=== PATIENT | male | born 1960 | race Caucasian/White ===

== ENCOUNTER 2020-11-07 15:02 | Outpatient (REF) | payer MEDICAID, SELFPAY ==
--- NOTE | ~2020-11-07 | MR_ITS ---
EXAMINATION: MR BRAIN WITHOUT CONTRAST CLINICAL INFORMATION: Ataxia. COMPARISON: None available. TECHNIQUE: Multiplanar, multisequence imaging of the brain was performed without intravenous contrast. FINDINGS: There is no acute infarction, mass, hemorrhage, or extra-axial collection. Moderate burden of demyelinating plaques are seen involving the periventricular, deep, and to lesser extent juxtacortical white matter. Multiple plaques are seen within the posterior fossa including within the nora, middle cerebellar peduncles, and deep cerebellar white matter. Many of the plaques demonstrate T1 hypointensity compatible with foci of chronic demyelination. A mild degree of brain parenchymal volume loss is seen. The flow voids of the major intracranial arteries appear intact. The bones and extracranial soft tissues are unremarkable. MR/MR head/brain wo con IMPRESSION: Moderate burden of demyelinating plaques seen throughout the supratentorial and infratentorial structures. No acute infarct, hemorrhage, or mass.
== END 2020-11-07 15:03 | disposition home or self-care (01) ==
LOC: HO.MRI 15:02
PROVIDERS: PCP Internal Medicine; Visit Provider Psychiatry & Neurology Neurology
DX: R27.0 Ataxia, unspecified (principal)
CPT/HCPCS: 70551

== ENCOUNTER 2021-04-02 10:26 | Outpatient (REF) | payer MEDICAID, SELFPAY | END 2021-04-02 10:27 | disposition home or self-care (01) | LOC: HO.MDS 10:26 | PROVIDERS: PCP Internal Medicine; Visit Provider Psychiatry & Neurology Neurology | DX: G35 Multiple sclerosis (principal) | CPT/HCPCS: 96365; J2930 ==

== ENCOUNTER 2021-04-03 10:35 | Outpatient (REF) | payer MEDICAID, SELFPAY | END 2021-04-03 10:36 | disposition home or self-care (01) | LOC: HO.MDS 10:35 | PROVIDERS: PCP Internal Medicine; Visit Provider Psychiatry & Neurology Neurology | DX: G35 Multiple sclerosis (principal) | CPT/HCPCS: 96365; J2930 ==

== ENCOUNTER 2021-04-04 10:23 | Outpatient (REF) | payer MEDICAID, SELFPAY | END 2021-04-04 10:24 | disposition home or self-care (01) | LOC: HO.MDS 10:23 | PROVIDERS: PCP Internal Medicine; Visit Provider Psychiatry & Neurology Neurology | DX: G35 Multiple sclerosis (principal) | CPT/HCPCS: 96365; J2930 ==

== ENCOUNTER 2021-11-15 11:43 | Outpatient (REF) | payer MEDICAID, SELFPAY ==
--- NOTE | ~2021-11-15 | MR_ITS ---
EXAMINATION: MRI OF THE BRAIN WITHOUT CONTRAST CLINICAL INFORMATION: 60-year-old undergoing evaluation for exacerbation of MS. COMPARISON: 11/07/2020 MRI. TECHNIQUE: Multiplanar multisequence MR imaging of the brain was done without IV contrast. FINDINGS: BRAIN VOLUME: Moderate focal volume loss involving the posterior body of the corpus callosum is similar to previous study. [id number] diffuse brain parenchymal volume loss throughout the supratentorial compartment is similar to previous exam. STRUCTURAL: No malformations. BRAIN AND MENINGES: DWI sequence demonstrates no restricted diffusion to suggest acute or subacute cerebral ischemia or active demyelination. Gradient refocused imaging demonstrates no evidence for hemorrhage, hemosiderin staining or abnormal mineral deposition. Redemonstrated are numerous white matter plaques throughout the subcortical and deeper periventricular white matter of both cerebral hemispheres with a similar overall distribution and appearance on T2 and FLAIR imaging. On T1-weighted imaging there are multiple T1 dark lesions with no significant change in overall lesion burden. No definite new lesions are seen since the previous exam. No extra-axial fluid collections, significant space-occupying process or mass effect. VENTRICLES AND SUBARACHNOID SPACES: The ventricular system and subarachnoid spaces are consistent with [id number] generalized supratentorial volume loss without hydrocephalus stable in appearance. ORBITAL STRUCTURES: Bilateral lens extractions are noted since the previous exam. Otherwise, the visualized orbital structures are grossly unremarkable within the limitations of the study. VASCULAR: Signal voids are noted in the visualized major intracranial vessels. OSSEOUS STRUCTURES, SINUSES/MASTOIDS, EXTRACRANIAL SOFT TISSUES: Unremarkable. MR/MR head/brain wo con IMPRESSION: 1. Overall stable white matter lesions in both cerebral hemispheres and corpus callosum with stable multiple T1 dark lesions indicating chronic demyelination. No definite new lesions are identified. 2. No acute intracranial process. No evidence for infarction, hemorrhage, extra-axial fluid collection, space-occupying process, mass effect or hydrocephalus. 3. Stable diffuse supratentorial parenchymal volume loss.
== END 2021-11-15 11:44 | disposition home or self-care (01) ==
LOC: HO.MRI 11:43
PROVIDERS: Visit Provider Psychiatry & Neurology Neurology
DX: G35 Multiple sclerosis (principal)
CPT/HCPCS: 70551

== ENCOUNTER 2021-11-19 09:49 | Outpatient (REF) | payer MEDICAID, SELFPAY | END 2021-11-19 09:50 | disposition home or self-care (01) | LOC: HO.MDS 09:49 | PROVIDERS: Visit Provider Psychiatry & Neurology Neurology | DX: G35 Multiple sclerosis (principal) | CPT/HCPCS: 96365; J2930 ==

== ENCOUNTER 2021-11-20 09:44 | Outpatient (REF) | payer MEDICAID, SELFPAY | END 2021-11-20 09:45 | disposition home or self-care (01) | LOC: HO.MDS 09:44 | PROVIDERS: Visit Provider Psychiatry & Neurology Neurology | DX: G35 Multiple sclerosis (principal) | CPT/HCPCS: 96365; J2930 ==

== ENCOUNTER 2021-11-21 10:10 | Outpatient (REF) | payer MEDICAID, SELFPAY | END 2021-11-21 10:11 | disposition home or self-care (01) | LOC: HO.MDS 10:10 | PROVIDERS: Visit Provider Psychiatry & Neurology Neurology | DX: G35 Multiple sclerosis (principal) | CPT/HCPCS: 96365; J2930 ==

== ENCOUNTER 2022-02-06 09:46 | Outpatient (REF) | payer MEDICAID, SELFPAY ==
--- NOTE | ~2022-02-06 | XR_ITS ---
EXAMINATION: XR CHEST CLINICAL INFORMATION: Nonspecific reaction to skin test without active tuberculosis COMPARISON: 04/14/2013 TECHNIQUE: 2 views of the chest were obtained. FINDINGS: Lungs are clear. No focal consolidation or mass. Normal pulmonary vascularity. No pleural effusion or pneumothorax. Normal heart size. Degenerative changes of the thoracic spine and shoulders. XR/XR chest 2V IMPRESSION: Normal chest. No findings to suggest active intrathoracic tuberculosis.
== END 2022-02-06 09:47 | disposition home or self-care (01) ==
LOC: HO.XRAY 09:46
PROVIDERS: Absent Provider Internal Medicine; PCP Internal Medicine; Visit Provider Internal Medicine
DX: R76.11 Nonspecific reaction to tuberculin skin test without active tuberculosis (principal)
CPT/HCPCS: 71046

== ENCOUNTER 2023-03-26 08:02 | Outpatient (REF) | payer MEDICARE, MEDICAID, SELFPAY ==
[2023-03-26 11:55] LABS: Estimated Average Glucose 111 mg/dL; Hemoglobin A1c % 5.5 % (<6.0)
[2023-03-26 12:00] LABS: Basophils Absolute Auto 0.1 X10*3/uL (0.0-0.2); Basophils Percent Auto 1.1 % (0-2); Eosinophils Absolute Auto 0.1 X10*3/uL (0.0-0.4); Eosinophils Percent Auto 1.9 % (0-4); Hematocrit 38.4 % (42.0-52.0); Hemoglobin 12.7 g/dl (14.0-18.0); Imm Gran Abs Auto 0.03 X10*3/uL (0.00-0.03); Imm Gran Pct Auto 0.5 % (0.0-0.4); Lymphocytes Absolute Auto 1.3 X10*3/uL (1.2-4.9); Lymphocytes Percent Auto 22.2 % (20-40); MANUAL DIFF FLAG SCAN; Mean Corpuscular HGB Conc 33.1 g/dl (31.0-36.0); Mean Corpuscular Hemoglobin 30.4 pg (27.0-33.0); Mean Corpuscular Volume 91.9 fL (80.0-98.0); Mean Platelet Volume 12.2 fL (9.4-12.4); Monocytes Absolute Auto 0.7 X10*3/uL (0.1-1.2); Neutrophils Absolute Auto 3.5 x10*3/uL (2.0-8.3); Neutrophils Percent Auto 62.3 % (45-73); PLT CLUMP 1; Red Blood Count 4.18 X10*6/uL (4.60-5.80); Red Cell Distribution Width 13.2 % (11.0-16.0); SCAN SMEAR FLAG 1
[2023-03-26 12:28] LABS: Alanine Aminotransferase 36 U/L (0-40); Albumin Level 4.4 g/dL (3.5-5.0); Alkaline Phosphatase 69 U/L (39-117); Anion Gap 15 (12-20); Aspartate Amino Transferase 27 U/L (5-37); Bilirubin Direct 0.1 mg/dL (0.0-0.5); Bilirubin Total 0.3 mg/dL (0.0-1.0); Blood Urea Nitrogen 22 mg/dL (9-16); Calcium 9.6 mg/dL (8.4-10.2); Carbon Dioxide 24 mmol/L (22-29); Chloride 104 mmol/L (96-108); Cholesterol 165 mg/dL (<200); Estimated Glomerular Filt Rate > 60; Glucose Random 109 mg/dL (60-115); HDL Cholesterol 41 mg/dL (>40); LDL Cholesterol Calculated 99 mg/dL (<100); Potassium 3.8 mmol/L (3.3-5.1); Sodium 139 mmol/L (135-145); Total Protein 7.7 g/dL (6.5-8.0); Triglycerides 129 mg/dL (<150)
[2023-03-26 12:39] LABS: HIV AB/AG Nonreactive (Nonreactive); HIV Num 1 0.04 S/CO (0.00-0.99); ~HepC Num1 15.94 S/CO (0.00-0.79); ~Hepatitis C Antibody Reactive (Nonreactive)
[2023-03-26 12:43] LABS: White Blood Count 5.7 X10*3/uL (4.8-10.8)
[2023-03-26 12:45] LABS: SLIDE REVIEW VERIFIED
[2023-03-31 19:33] LABS: HCV Log PCR <1.18 NOT DETECTED Log IU/mL (NOT DETECTED); HepC Viral Load <15 NOT DETECTED IU/mL (NOT DETECTED)
== END 2023-03-26 08:03 | disposition home or self-care (01) ==
LOC: HO.HHCL 08:02
PROVIDERS: Visit Provider Internal Medicine
DX: Z00.00 Encounter for general adult medical examination without abnormal findings (principal); Z11.4 Encounter for screening for human immunodeficiency virus [HIV]
CPT/HCPCS: 36415; 80048; 80061; 80076; 83036; 85025; 86803; 87389; 87522

== ENCOUNTER 2023-08-13 08:19 | Outpatient (REF) | payer MEDICARE, MEDICAID, SELFPAY ==
[2023-08-13 12:26] LABS: Alanine Aminotransferase 39 U/L (0-40); Albumin Level 4.5 g/dL (3.5-5.0); Alkaline Phosphatase 67 U/L (39-117); Aspartate Amino Transferase 28 U/L (5-37); Bilirubin Direct 0.1 mg/dL (0.0-0.5); Bilirubin Total 0.4 mg/dL (0.0-1.0)
== END 2023-08-13 08:20 | disposition home or self-care (01) ==
LOC: HO.HHCL 08:19
PROVIDERS: Visit Provider Psychiatry & Neurology Neurology
DX: G35 Multiple sclerosis (principal)
CPT/HCPCS: 36415; 80076

== ENCOUNTER 2023-12-03 11:12 | Outpatient (AMB) | payer MEDICARE, MEDICAID, SELFPAY ==
--- NOTE | 2023-12-03 11:16 | MHC.OFFVIS ---
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 However, patient denies the fact that he ever had chest pain. He states that on one occasion, he felt as though his heart was 'flipping' on itself. Unclear if he is describing a isolated PAC versus PVC type episode. Any case, did not have any clear-cut angina at any point. In fact denies any forms of chest pains and repeatedly questioned about this. Otherwise, no known cardiac issues in the past. History of substance abuse including cocaine but currently on methadone. Denies any recent drug use. [facility] Medical History (Updated 12/03/23 @ 11:41 by Ron Bhandari MD) Chronic pain of both feet Onychomycosis Opioid dependence Multiple sclerosis Depression Asthma Heroin dependence Glaucoma Cocaine dependence in remission Hepatitis C Family History Father No problems noted. Mother No problems noted. Social History (Updated 12/03/23 @ 11:21 by Dianne Mai CMA) Alcohol intake: former Patient Tobacco Use Status: Current everyday Tobacco user Review of Systems Const Denies chills, Denies daytime sleepiness, Denies fatigue, Denies fever(s), Denies poor appetite, Denies snoring, Denies stops breathing during sleep, Denies weakness, Denies weight gain and Denies weight loss Eyes Denies loss of vision ENT Denies dizziness and Denies hearing loss Card Reports chest pain, Denies irregular heart rhythm, Denies claudication, Denies leg edema, Denies lightheadedness, Denies palpitations, Denies dyspnea on exertion and Denies orthopnea Resp Denies cough, Denies excessive phlegm production, Denies dyspnea on exertion, Denies snoring and Denies wheezing GI Denies abdominal pain, Denies hematochezia, Denies change in bowel habits, Denies nausea and Denies vomiting Denies dysuria and Denies urinary frequency Musc Denies arthralgias, Denies muscle weakness, Denies numbness and Denies other Skin/Breast Denies nail changes and Denies rash Neuro Denies Abnormal speech present, Denies dizziness, Denies loss of vision, Denies memory loss, Denies numbness and Denies weakness Psych Denies depression and Denies memory loss Endo Denies fatigue and Denies palpitations Parveen/Lymph Denies easy bruising Aller/Immun Denies wheezing Physical Exam Vital Signs: Last Vital Signs Pulse 78 12/03/23 11:18 BP 120/84 12/03/23 11:18 BMI result Body Mass Index 30.4 Const General: comfortable and no acute distress Orientation/consciousness: patient oriented x3 HEENT Other: Unremarkable Head: Yes normal to inspection Neck Neck: Yes normal visual inspection Chest Chest palpation & inspection: normal inspection of the chest Resp Auscultation: clear to auscultation bilaterally Cardio Palpation: normal PMI Heart sounds: S1 normal heart sound present, S2 normal heart sound present, no gallops, no murmurs and no rubs GI Palpation (GI): Soft to palpation Back/Spine/Pelvis Other: unremarkable Skin General skin exam: no rashes or lesions noted Neuro General: patient oriented x3 Speech: No Abnormal speech present Extrem General: Yes normal to inspection Psych Mental Status: mental status grossly normal Office Procedures EKG Details: EKG with underlying sinus rhythm at 78/Min; no significant ST-T changes; [place]. [id number]-[id number], Complete Assessment & Plan Assessment & Plan (1) Heart palpitations: Code(s): R00.2 - Palpitations Category: Medical Plan Baseline EKG is unremarkable. Isolated episode of palpitations but denies chest pain. Will start with an echocardiogram and Holter monitor. Based on findings, can plan further care. Orders: Orders CA echo transthoracic complete Today R00.2 - Palpitations ECG 3 day holter monitor Today R00.2 - Palpitations Coding Level of Care Code New Pt Level 3 (85686) Diagnoses Heart palpitations R00.2 CPT Codes EKG - CPT: 23997-[id number], Complete ([id number])
[2023-12-03 11:18] VITALS: BP 120/84; PULSE 78; BMI 30.4
== END 2023-12-03 11:37 | disposition home or self-care (01) ==
PROVIDERS: PCP Internal Medicine; Visit Provider Internal Medicine
DX: R00.2 Palpitations (principal)
CPT/HCPCS: 93010; 99203

== ENCOUNTER → 2023-12-03 11:12 | Outpatient (BNVA) | payer MEDICARE, MEDICAID, SELFPAY | PROVIDERS: PCP Internal Medicine; Visit Provider Internal Medicine | DX: R00.2 Palpitations (principal) | CPT/HCPCS: 93005; 99202 ==

== ENCOUNTER → 2024-01-06 08:40 | Outpatient (REF) | payer MEDICARE, MEDICAID, SELFPAY ==
--- NOTE | 2024-01-06 08:43 | CA_ITS ---
Transthoracic Echocardiogram Patient (Last, First, Middle): Mango Abernathy A Gender: Male Date of : 1960 Age: 63 Procedure Date: 01/06/2024 Procedure Type: Transthoracic Echocardiogram Location: OP Height: 177.8 cm Weight: 97.07 kg BSA: 2.15 m2 Heart Rate: 79 bpm BP: 122 / 76 mmHg Surveillance Systems Engineer: TO Referring MD: Ron Bhandari MD Patient Intake Representative: Haim Jack MD Symptoms: R00.2 - Palpitations Study Quality: Adequate w contrast ECG Rhythm: Sinus Conclusions: - 1. Low normal LV ejection fraction at 50-55% with grade 1 diastolic dysfunction 2. Normal cardiac valvular Doppler 3. Upper limits of normal ascending aortic size Findings Procedure Information Contrast agent, definity, is being given per protocol without apparent complications. Left Ventricle Normal left ventricular cavity size. There is normal left ventricular wall thickness. The left ventricular systolic function is low normal. The visually estimated ejection fraction is between 50-55%. Spectral Doppler is indicative of an impaired relaxation filling pattern. E/E prime ratio is <8, consistent with normal filling pressures. Evidence suggests grade I (mild) diastolic dysfunction. Right Ventricle Normal right ventricular cavity size and systolic function. Atria Both atria are normal in size. Interatrial shunt cannot be excluded. Aortic Valve The aortic valve structure and function is likely normal. There is no aortic valve stenosis. There is no aortic valve regurgitation. Mitral Valve Normal mitral valve structure and function. There is trace mitral valve regurgitation. There is no mitral valve stenosis. Pulmonic Valve The pulmonic valve was not well visualized. There is trace pulmonic valve regurgitation. Tricuspid Valve Likely normal tricuspid valve structure and function. Tricuspid regurgitation envelope is inadequate for calculation of right ventricular systolic pressure. Normal right atrial pressure. Great Vessels All visible segments of the aorta are normal in size. The pulmonary artery was not well visualized. There is no dilatation of the ascending aorta measuring 3.50 cm. Venous The inferior vena cava is normal in size and collapses greater than 50% with inspiration. Pericardium/Pleural There is no evidence of pericardial effusion. Prior Study Comparison No previous study in the last 5 years for comparison Measurements 2D Linear Measurements IVSd: 0.82 0.6-0.9/0.6-1.0 cm LVIDd: 5.29 3.9-5.3/4.2-5.9 cm LVIDd Index: 2.46 2.4-3.2/2.2-3.1 cm/m2 LVIDs: 4.28 2.0-3.6 cm LVPWd: 0.75 0.7-1.1 cm LA Diam: 3.70 2.7-3.8/3.0-4.0 cm LAIDs Index: 1.72 1.5-2.3 cm/m2 LV Mass: 182.37 67-162/88-224 g LV Mass Index: 84.82 43-95/49-115 g/m2 LVOT Diam: 2.20 3.0+(-)1.3 cm 2D Systolic Function EF 4C: 53.80 >55% EF 2C: 50.60 >55% EF BiP: 53.00 >55% Mitral Valve MV Pk E: 0.50 MV PK A: 0.71 MV Decel Time: 166.00 E/A: 0.70 E'Lateral: 8.27 E'Medial: 6.09 E/E' Med: 8.20 E/E' Lat: 6.00 PHT: 49.00 MVA PHT: 4.49 Decel [place]: 2.99 Aortic Valve AoV Pk Colten: 1.33 AoV Mn Colten: 0.95 AoV VTI: 0.26 AoV Pk Grad: 7.00 Aov Mn Grad: 4.00 ANDREW Cont.VTI: 2.41 LVOT LVOT Pk Colten: 0.89 LVOT Mn Colten: 0.58 LVOT VTI: 0.16 LVOT Pk Grad: 3.00 LVOT Mn Grad: 1.00 LVOT Diam: 2.20 LVOT Area: 3.80 Diastolic Function MV Pk E: 0.50 MV Pk A: 0.71 E/A: 0.70 E'Medial: 6.09 E/E' Med: 8.20 E' Laterial: 8.27 E/E' Lat: 6.00 Right Ventricle TAPSE (mm): 29.50 TVS' Colten: 14.00 Tricuspid Valve RA Press: 3.00 Great Vessels Aorta Sinus of Valsalva: 3.33 2.0-3.5 cm Ao Asc: 3.50 2.1-3.4 cm Updated in Other Vendor System with Status of Final Haim Jack MD electronically signed on 01/07/2024 12:06:39 PM with status of Final
--- NOTE | 2024-01-06 08:43 | HM_ITS ---
* Total monitoring time 3 days. * Underlying rhythm is sinus with an average rate of 70/Min. * Rare supraventricular ectopy. * Rare ventricular ectopy. * Mobitz type 1 second-degree heart block during sleep hours. * No patient markers or diary events. MTDD
== END ==
LOC: HO.CARD 08:40
PROVIDERS: Visit Provider Internal Medicine
DX: R00.2 Palpitations (principal)
CPT/HCPCS: 93242; 93306; Q9957

== ENCOUNTER → 2024-01-06 08:43 | Outpatient (BNV) | payer MEDICARE, MEDICAID, SELFPAY | PROVIDERS: Visit Provider Internal Medicine Cardiovascular Disease | DX: I47.10 Supraventricular tachycardia, unspecified (principal); I44.1 Atrioventricular block, second degree | CPT/HCPCS: 93244; 93306 ==

== ENCOUNTER 2024-02-16 09:01 | Outpatient (REF) | payer MEDICARE, MEDICAID, SELFPAY ==
[2024-02-16 12:01] LABS: Alanine Aminotransferase 53 U/L (0-40); Albumin Level 4.4 g/dL (3.5-5.0); Alkaline Phosphatase 73 U/L (39-117); Aspartate Amino Transferase 38 U/L (5-37); Bilirubin Direct 0.1 mg/dL (0.0-0.5); Bilirubin Total 0.4 mg/dL (0.0-1.0); Total Protein 7.7 g/dL (6.5-8.0)
[2024-02-22 02:13] LABS: JCV Antibody POSITIVE; JCV Index Value 2.67
== END 2024-02-16 09:02 | disposition home or self-care (01) ==
LOC: HO.HHCL 09:01
PROVIDERS: Visit Provider Psychiatry & Neurology Neurology
DX: G35 Multiple sclerosis (principal)
CPT/HCPCS: 36415; 80076; 86711

== ENCOUNTER 2024-05-09 09:46 | Outpatient (AMB) | payer MEDICARE, MEDICAID, SELFPAY ==
--- NOTE | 2024-05-09 09:57 | A.OFFVIS_ITS ---
Vital Signs 05/09/24 09:58 Height 5 ft 10.5 in Weight 220 lb 0.341 oz BMI 31.1 BP 110/60 Blood Pressure Location Lt brachial Position Sitting Intake Visit Reasons: F/U after testing Patient Services Manager Required: No Accompanied by: Self / Same As Patient Allergies No Known Allergies Allergy (Unknown, Unverified 09/14/23 13:18) Medication List - Last Reconciled 05/09/24 by Ron Bhandari MD methadone 30 mg PO DAILY HPI Comments Details: Mango returns for follow-up. He was referred recently for evaluation of atyp ical chest pain. However, patient denies the fact that he ever had chest pain. He states that on one occasion, he felt as though his heart was 'flipping' on itself. Unclear if he is describing a isolated PAC versus PVC type episode. Any case, did not have any clear-cut angina at any point. In fact denies any forms of chest pains and repeatedly questioned about this. Otherwise, no known cardiac issues in the past. History of substance abuse including cocaine but currently on methadone. Denies any recent drug use. He has completed an echocardiogram/Holter. He states he feels great. [facility] Medical History (Updated 12/03/23 @ 11:41 by Ron Bhandari MD) Chronic pain of both feet Onychomycosis Opioid dependence Multiple sclerosis Depression Asthma Heroin dependence Glaucoma Cocaine dependence in remission Hepatitis C Family History Father No problems noted. Mother No problems noted. Social History Alcohol intake: former Patient Tobacco Use Status: Current everyday Tobacco user Review of Systems Const Denies chills, Denies fatigue, Denies fever(s), Denies weight gain and Denies weight loss ENT Denies dizziness Card Denies chest pain, Denies leg edema, Denies lightheadedness, Denies palpitations, Denies dyspnea on exertion, Denies orthopnea and Denies other Resp Denies cough and Denies dyspnea on exertion GI Denies hematochezia and Denies change in stool character Musc Denies abnormal gait, Denies muscle weakness, Denies numbness, Denies radiating pain into limb and Denies tingling Neuro Denies abnormal gait, Denies dizziness, Denies numbness and Denies tingling Endo Denies fatigue and Denies palpitations Physical Exam Vital Signs: Last Vital Signs BP 110/60 05/09/24 09:58 BMI result Body Mass Index 31.1 Const General: comfortable and no acute distress Orientation/consciousness: patient oriented x3 HEENT Other: Unremarkable Head: Yes normal to inspection Neck Neck: Yes normal visual inspection Chest Chest palpation & inspection: normal inspection of the chest Resp Auscultation: clear to auscultation bilaterally Cardio Palpation: normal PMI Heart sounds: S1 normal heart sound present, S2 normal heart sound present, no gallops, no murmurs and no rubs GI Palpation (GI): Soft to palpation Back/Spine/Pelvis Other: unremarkable Skin General skin exam: no rashes or lesions noted Neuro General: patient oriented x3 Extrem General: Yes normal to inspection Psych Mental Status: mental status grossly normal Assessment & Plan Assessment & Plan (1) Heart palpitations: Code(s): R00.2 - Palpitations Category: Medical Plan Baseline EKG is unremarkable. Isolated episode of palpitations but denies chest pain. In the echocardiogram, LVEF 50-55%. No significant valvular findings and otherwise unremarkable. Holter monitor shows underlying sinus rhythm with an average rate of 70/Min. Rare supraventricular/ventricular ectopy. Mobitz type 1 second-degree block during sleep hours. Overall, benign findings on about testing and patient completely asymptomatic at this time. Because of the nighttime bradycardia/Mobitz type 1 block, consider sleep study - maybe ordered through his PCP. Otherwise, we can see as needed. Coding Level of Care Code Est Pt Level 3 (15350) Diagnoses Heart palpitations R00.2
[2024-05-09 09:58] VITALS: BP 110/60; BMI 31.1
--- OUTSIDE RECORDS SUMMARY | 2024-05-09 10:15 | XMS_ITS | Clinical Summary ---
Author Organization [employer] Address [address] [facility] [address] [place] [address] Care Team Providers Care Thermite Bomb Loader Name Role Phone Breanna Cavanaugh MD Primary Care Provide r Allergies No known active allergies Medications ibuprofen 800 MG tabletIndication s:Chronic pain of both feet TAKE 1 TABLET BY MOUTH THREE TIMES DAILY 90 tablet 04/12/19 25 Active albuterol (Ventolin HFA) 108 (90 Base) MCG/ACT inhalerIndicatio ns:Mild intermittent asthma without complication INHALE 2 PUFFS BY MOUTH EVERY 4 TO 6 HOURS NEEDED 18 g 1 04/21/19 25 Active ibuprofen 800 MG tabletIndication s:Chronic pain of both feet TAKE 1 TABLET BY MOUTH THREE TIMES DAILY 90 tablet 02/16/20 24 025 Discontinued(Re order (will not trigger notification to Pharmacy)) albuterol (Ventolin HFA) 108 (90 Base) MCG/ACT inhalerIndicatio ns:Mild intermittent asthma without complication INHALE 2 PUFFS BY MOUTH EVERY 4 TO 6 HOURS NEEDED 18 g 1 02/25/20 24 025 Discontinued Active Problems Problem Noted Date Diagnosed Date Chronic pain of both feet 09/07/2023 Atypical chest pain 09/07/2023 Encounter for preventive health examination 03/07 Assessment & Plan (03/25/2023 11:24 AM EST): See HPI Onychomycosis 03/25/2023 Assessment & Plan (03/25/2023 11:24 AM EST): I will f/u LFTs if they are normal I will send oral treatment Elevated blood pressure reading 03/20/2023 03/20/2023 Depressive disorder 03/03/2022 Multiple sclerosis 03/03/2022 Assessment & Plan (09/07/2023 1:25 PM EDT): F/u with neurology Assessment & Plan (03/25/2023 11:23 AM EST): I will refer him back to neurology Opioid dependence 03/03/2022 Assessment & Plan (03/25/2023 11:18 AM EST): Patient currently on methadone on 100mg daily Chronic hepatitis C 03/11/2017 Cocaine dependence in remission 03/11/2017 Glaucoma 03/11/2017 Heroin dependence 03/11/2017 Mild intermittent asthma 03/11/2017 Assessment & Plan (03/25/2023 11:23 AM EST): Controlled c/w current interventions Mood disorder 03/11/2017 Positive PPD 03/11/2017 Wears partial dentures 03/11/2017 Encounters Date Type Department Care Team Description 04/21/2024 Refill [facility] [address] [place] [address] Breanna Cavanaugh MD Mild intermittent asthma without complication 04/12/2024 Refill [facility] [address] [place] [address] Breanna Cavanaugh MD Chronic pain of both feet 03/28/2024 Telephone [facility] [address] [place] [address] Breanna Cavanaugh MD telephone call 03/17/2024 Patient Outreach [facility] [address] [place], [place] [phone] Breanna Cavanaugh MD Pre-visit Planning (SDOH screening negative and tobacco screening positive) 02/25/2024 Refill [facility] [address] [place], [place] [phone] Breanna Cavanaugh MD Mild intermittent asthma without complication 02/15/2024 Refill [facility] [address] [place] [address] Breanna Cavanaugh MD Chronic pain of both feet from Last 3 Months Immunizations Name Administration Dates Next Due Hep A / Hep B 01/07/2007 Hep A, Adult 01/01/2000 INFLUENZA VACCINE QUADRIVALE NT RECOMBINANT PRESERVATIVE FREE RIV4 01/14/2018,01/14/2017,12/18/2015 Influenza injectable quadriv alent IIV4 with preservative 01/14/2018,01/14/2017,12/18/2015 Influenza injectable quadriv alent preservative free 03/25/2023,02/04/2022 Influenza, IIV3, injectable 01/17/2016, 5 Influenza, Split (incl. mick fied surface antigen) 12/10/2012 Moderna Covid-19 Vaccine 12+ 03/07/2021,08/30/19 21,07/25/2020 Pfizer Covid-19 Vaccine 12+ 04/17/2023 Pneumococcal Conjugate PCV 20 09/07/2023 Pneumococcal Polysaccharide PPSV23 11/07/2005 Td (adult), 5 Lf tetanus tox oid, preservative free, adsorbed 10/06/2012 Tdap 10/06/2012,05/26/2007,06/05/1999 Zoster, Recombinant 11/28/2021,09/13/2021 Social History Tobacco Use Types Packs/Day Years Used Date Smoking Tobacco: Every Day Cigarettes Passive Smoke Exposure: Current Smokeless Tobacco: Never Tobacco Cessation:Ready to Q uit: Not Asked; Counseling Given: Not Answered Depression Answer Date Recorded Patient Health Questionnaire-9 Score 0 09/07/2023 Patient Health Questionnaire-9 Score 0 09/07/2023 Last PHQ-9: Questionnaire Data Not on file 0 09/07/2023 Housing Stability Answer Date Recorded What is your housing situation today? I have ryan claudio 03/25/[address] you li ve. Do you have problems with any of the following? None of the above 03/25/2023 Food Insecurity Answer Date Recorded Within the past 12 months, y ou worried that your food would run out before you got money to buy more: Never True 03/25/2023 Within the past 12 months,th e food you bought just didn't last and you didn't have enough money to get more: Never True Transportation Answer Date Recorded In the past 12 months, has l ack of transportation kept you from medical appts, meetings, work or from getting things needed for daily living? No 03/25/2023 Utilities Answer Date Recorded In the past 12 months, has t he electric, gas, oil or water company threatened to shut off services in your home? No 03/25/2023 Depression Answer Date Recorded Patient Health Questionnaire-2 Score 0 09/07/2023 Internet Access Answer Date Recorded Internet Access Q1 Yes 03/17/2024 Internet Access Q2 Not on file 03/17/2024 Sex and Gender Information Value Date Recorded Sex Assigned at Male 02/03/2022 10:16 AM EDT Legal Sex Male 10:16 AM EDT Gender Identity Male 02/03/2022 10:16 AM EDT Sexual Orientation Straight 02/03/2022 10 :16 AM EDT Last Filed Vital Signs Vital Sign Reading Time Taken Comments Blood Pressure 140/90 09/07/2023 11:37 AM EDT Pulse 69 09/07/2023 11:37 AM EDT Temperature 36.3 ??C (97.3 ??F) 09/07/2023 11:37 AM E DT Respiratory Rate 12 09/07/2023 11:37 AM EDT Oxygen Saturation 94% 09/07/2023 11:37 AM EDT Inhaled Oxygen Concentration - - Weight 95.7 kg (211 lb) 09/07/2023 11:37 AM EDT Height 180.3 cm (5' 11 ) 09/07/2023 11:37 AM EDT Body Mass Index 29.43 09/07/2023 11:37 AM EDT Plan of Treatment Health Maintenance Due Date Last Done Comments CT Colonography 1962 Colonoscopy 1962 Colorectal Cancer Screening 1962 FIT DNA/Cologuard 1962 FIT 1962 FOBT 1962 Sigmoidoscopy 1962 Alcohol/Substance Use Screening 1974 Hepatitis B Vaccines (2 of 3 - Hep B Twinrix risk 3-dose series) 02/04/2007 01/07/2007 Hepatitis A Vaccines (3 of 3 - Hep A Twinrix risk 3-dose series) 06/08/2007 01/07/2007, 01/01/2000 DTaP/Tdap/Td Vaccines (5 - Td or Tdap) 10/06/2022 10/06/2012, 10/06/2012, 05/26/2007, Additional history exists RSV Patients and Patients Aged 60 years or older (1 - Risk 60-74 years 1-dose series) 2022 COVID-19 Vaccine ( season) 2023 04/17/2023, 02/07/2022, 03/07/2021, Additional history exists Influenza Vaccine (#1) 2023 , 02/04/2022, 01/14/2018, Additional history exists Depression Screening 09/06/2024 09/07/2023, 09/07/19 Tobacco Screening 09/06/2024 09/07/2023 SDOH Screening 03/17/2025 03/17/2024 Lipid Panel 03/26/2028 03/26/2023, 0 05/2021, 09/26/2020 Zoster Vaccines Completed 11/28/2021, 09/13/2021 HIV Screening Completed 03/26/2023, 0 05/2021, 09/26/2020, Additional history exists Pneumococcal Vaccine: 50+ Years Completed 09/07/2023, 11/07/2005 Pneumococcal Vaccine: Pediatrics (0 to 5 Years) and At-Risk Patients (6 to 49) Years) Completed 09/07/2023, 11/07/2005 HIB Vaccines Aged Out No longer eligi ble based on patient's age to complete this topic HPV Vaccines Aged Out No longer eligi ble based on patient's age to complete this topic IPV Vaccines Aged Out No longer eligi ble based on patient's age to complete this topic Meningococcal Vaccine Aged Out No mary lorraine eligible based on patient's age to complete this topic RSV under 20 months Aged Out No longe r eligible based on patient's age to complete this topic Rotavirus Vaccines Aged Out No longer eligible based on patient's age to complete this topic Procedures Procedure Name Priority Date/Time Associated Diagnosis Comments HIV 1/2 ANTIGEN/ANTIBODY, FOURTH GENERATION W/RFL Routine 03/26/2023 8:03 AM EST Encounter for preventive health examination LIPID PANEL, STANDARD Routine 03/26/2023 8:03 AM EST Encounter for preventive health examination from Last 3 Months or Most Recently Relevant to Health Maintenance Results * HIV-1/2 Antigen and Antibodies, Fourth Generation, with Reflexes (03/26/2023 8:03 AM EST) HIV AB/AG Nonreactive Nonreactive [facility] Comment:HIV-1 p24 Ag and/or HIV-1/HIV-2 Ab not detected.A test result that is nonreactive does not exclude thepossibility of exposure to or infection with HIV-1 and/orHIV-2. Nonreactive results in this assay for individualswith prior exposure to HIV-1 and/or HIV-2 may be due toantigen and antibody levels that are below the limit ofdetection of this assay.The [employer] HIV Ag/Ab Combo assay result andsupplemental assay results should be interpreted inconjunction with the patient's clinical presentation,history and other laboratory results. If the results areinconsistent with clinical evidence, additional testing issuggested to confirm the result. Blood Venous blood specimen / Unknown 03/26/2023 8:03 AM EST 03/26/2023 11:17 AM EST us Breanna Vance MD LAB BLOOD ORDERABLES Final Result [facility] [address] [place] [phone] * Lipid Panel, Standard (03/26/2023 8:03 AM EST) Triglycerides 129 <150 mg/dL [facility] Comment:Desirable Triglyceri de: less than 150 mg/dLBorderline High Triglyceride 150-199 mg/dLHigh Triglyceride: 200-499 mg/dLVery High Triglyceride: greater than or equal to 5OO mg/dL Cholesterol 165 <200 mg/dL [facility] Comment:Desirable Cholestero l: less than 200 mg/dLBorderline High Cholesterol: 200-239 mg/dLHigh Cholesterol: greater than 239 mg/dL LDL Cholesterol Calculated 99 <100 mg/dL [facility] Comment:Desirable LDL: less than 100 mg/dLNear Optimal/Above Optimal LDL: 110- 129 mg/dLBorderline High LDL: 130-159 mg/dLHigh LDL: 160-189 mg/dLVery High LDL: greater than or equal to 190 mg/dL HDL Cholesterol 41 >40 mg/dL [facility] Comment:Desirable HDL: great er than 40 mg/dL Note: This HDL assay may give artificially low results in patients with liver disease. Blood Venous blood specimen / Unknown 03/26/2023 8:03 AM EST 03/26/2023 11:17 AM EST Breanna Vance MD LAB BLOOD ORDERABLES Final Result [facility] [address] [place] [phone] from Last 3 Months or Most Recently Relevant to Health Maintenance Insurance MEDICARE [facility] Care Teams Thermite Bomb Loader Relationship Specialty Start Date End Date Breanna Cavanaugh MD [address] [place] [id number] PCP - General Family Medicine 12/16/17
--- OUTSIDE RECORDS SUMMARY | 2024-05-09 10:15 | XMS_ITS | Encounter Summary ---
Author Organization [employer] Address [address] [place] [address] Care Team Providers Care Hearing And Speech Assistant Name Role Phone Breanna Cavanaugh MD Primary Care Provide r Reason for Visit * Reason Comments Med Refill Encounter Details Date Type Department Care Team ([facility] st Contact Info) Description 12/05/2023 Refill [facility] [address] [place], [place] [phone] Breanna Cavanaugh MD [address] [place], [place] [phone] Mild intermittent asthma without complication Social History Tobacco Use Types Packs/Day Years Used Date Smoking Tobacco: Every Day Cigarettes Passive Smoke Exposure: Current Smokeless Tobacco: Never Depression Answer Date Recorded Patient Health Questionnaire-9 [...] Recorded Patient Health Questionnaire-2 Score 0 09/07/2023 Sex and Gender Information Value Date Recorded Sex Assigned at Male 02/03/2022 10:16 AM EDT Legal Sex Male 10:16 AM EDT Gender Identity Male 02/03/2022 10:16 AM EDT Sexual Orientation Straight 02/03/2022 10 :16 AM EDT documented as of this encounter Plan of Treatment Not on file documented as of this encounter Visit Diagnoses Diagnosis Mild intermittent asthma without complication documented in this encounter Additional Health Concerns Assessment Noted Time PHQ-9 Depression Total Score: 0 09/07/19 24 11:39 AM EDT documented as of this encounter Care Teams Hearing And Speech Assistant Relationship Specialty Start Date End Date Breanna Cavanaugh MD [address] [place] [phone] PCP - General Family Medicine 12/16/17 documented as of this encounter
--- OUTSIDE RECORDS SUMMARY | 2024-05-09 10:15 | XMS_ITS | Encounter Summary ---
Author Organization [employer] Address [address] [facility] [address] [place] [address] Care Team Providers Care Hogshead Mat Assembler Name Role Phone Breanna Cavanaugh MD Primary Care Provide r Reason for Visit * Reason Comments Med Refill Encounter Details Date Type Department Care Team ([facility] st Contact Info) Description 05/25/2023 Refill [facility] [address] [place], [place] [phone] Amina Richmond MD [address] [place], [place] [phone] Social History Tobacco Use Types Packs/Day Years Used Date Smoking Tobacco: Never Passive Smoke Exposure: Never Smokeless Tobacco: Never Housing Stability Answer Date Recorded What is your housing situation today? I have ryanrenata claudio 03/25/[address] you [...] off services in your home? No 03/25/2023 Sex and Gender Information Value Date Recorded Sex Assigned at Male 02/03/2022 10:16 AM EDT Legal Sex Male 10:16 AM EDT Gender Identity Male 02/03/2022 10:16 AM EDT Sexual Orientation Straight 02/03/2022 10 :16 AM EDT documented as of this encounter Plan of Treatment Not on file documented as of this encounter Visit Diagnoses Not on filedocumented in this encounter Care Teams Hogshead Mat Assembler Relationship Specialty Start Date End Date Breanna Cavanaugh MD [address] [place] [id number] PCP - General Family Medicine 12/16/17 documented as of this encounter
--- OUTSIDE RECORDS SUMMARY | 2024-05-09 10:15 | XMS_ITS | Encounter Summary ---
Author Organization [employer] Address [address] [place] [address] Care Team Providers Care Sales And Service Agent Name Role Phone Breanna Cavanaugh MD Primary Care Provide r Reason for Visit * Reason Onset Date Comments Med Refill 04/12/2024 Encounter Details Date Type Department Care Team (Late st Contact Info) Description 04/12/2024 Refill [facility] [address] [place], [place] [phone] Breanna Cavanaugh MD [address] [place], [place] [phone] Chronic pain of both feet Social History Tobacco Use Types Packs/Day Years [...] as of this encounter Visit Diagnoses Diagnosis Chronic pain of both feet documented in this encounter Additional Health Concerns Assessment Noted Time PHQ-9 Depression Total Score: 0 09/07/19 24 11:39 AM EDT documented as of this encounter Care Teams Sales And Service Agent Relationship Specialty Start Date End Date Breanna Cavanaugh MD [address] [place] [phone] PCP - General Family Medicine 12/16/17 documented as of this encounter
--- OUTSIDE RECORDS SUMMARY | 2024-05-09 10:15 | XMS_ITS | Encounter Summary ---
Author Organization [employer] Address [address] [place] [address] Care Team Providers Care Stitcher Utility Name Role Phone Breanna Cavanaugh MD Primary Care Provide r Reason for Visit * Reason Onset Date Comments PT1 09/10/2023 Encounter Details Date Type Department Care Team ([facility] st Contact Info) Description 09/10/2023 Telephone [facility] [address] [place], [place] [phone] rBeanna Cavanaugh MD [address] [place], [place] [phone] PT1 Social History Tobacco Use Types Packs/Day Years [...] AM EDT documented as of this encounter Miscellaneous Notes * Telephone Encounter - Josephine Rivera - 09/10/2023 9:22 AM EDT Patient calling requesting PT1 Home Address verified: Y/N: Yes Provider name or facility name: [facility] Facility Address: [facility] [place] [address] Escort needed: Y/N: No Do you have a wheelchair: Y/N: No If yes- Manual or electric: n/a Visits: 2 per month documented in this encounter Plan of Treatment Not on file documented as of this encounter Visit Diagnoses Not on filedocumented in this encounter Additional Health Concerns Assessment Noted Time PHQ-9 Depression Total Score: 0 09/07/19 24 11:39 AM EDT documented as of this encounter Care Teams Stitcher Utility Relationship Specialty Start Date End Date Breanna Cavanaugh MD [address] [place] [phone] PCP - General Family Medicine 12/16/17 documented as of this encounter
--- OUTSIDE RECORDS SUMMARY | 2024-05-09 10:15 | XMS_ITS | Encounter Summary ---
Author Organization [employer] Address [address] [place] [address] Care Team Providers Care Fish Dressing Machine Feeder Name Role Phone Breanna Cavanaugh MD Primary Care Provide r Reason for Visit * Reason Comments Med Refill Encounter Details Date Type Department Care Team ([facility] st Contact Info) Description 04/21/2024 Refill [facility] [address] [place], [place] [phone] Breanna Cavanaugh MD [address] [place], [place] [phone] Mild intermittent asthma without complication Social History [...] documented as of this encounter Care Teams Fish Dressing Machine Feeder Relationship Specialty Start Date End Date Breanna Cavanaugh MD [address] [place] [phone] PCP - General Family Medicine 12/16/17 documented as of this encounter
== END 2024-05-09 10:31 | disposition home or self-care (01) ==
PROVIDERS: Visit Provider Internal Medicine
DX: R00.2 Palpitations (principal)
CPT/HCPCS: 99213

== ENCOUNTER → 2024-05-09 09:46 | Outpatient (BNVA) | payer MEDICARE, MEDICAID, SELFPAY | PROVIDERS: Visit Provider Internal Medicine | DX: R00.2 Palpitations (principal) | CPT/HCPCS: 99212 ==

== ENCOUNTER 2024-07-11 08:27 | Outpatient (REF) | payer MEDICARE, MEDICAID, SELFPAY ==
--- OUTSIDE RECORDS SUMMARY | 2024-07-11 09:00 | XMS_ITS | Clinical Summary ---
Author Organization [employer] Address [address] [facility] 7t [place] [address] Care Team Providers Care Web Publisher Name Role Phone Breanna Cavanaugh MD Primary Care Provide r Allergies No known active allergies Medications ibuprofen 800 MG tabletIndications :Chronic pain of both feet TAKE 1 TABLET BY MOUTH THREE TIMES DAILY 90 tablet 04/12/2024 Active albuterol (Ventolin HFA) 108 (90 Base) MCG/ACT inhalerIndication s:Mild intermittent asthma without complication INHALE 2 PUFFS BY MOUTH EVERY 4 TO 6 HOURS NEEDED 18 g 1 04/21/2024 Active Active Problems Problem Noted Date Diagnosed Date Colon cancer screening declined 07/07/2024 Chronic pain of both feet 09/07/2023 Atypical chest pain 09/07/2023 Encounter for preventive health examination 03/07 Assessment & Plan (03/25/2023 11:24 AM EST): See HPI Onychomycosis 03/25/2023 Assessment & Plan (03/25/2023 11:24 AM EST): I will f/u LFTs if they are normal I will send oral treatment Elevated blood pressure reading 03/20/2023 03/20/2023 Depressive disorder 03/03/2022 Multiple sclerosis 03/03/2022 Assessment & Plan (07/07/2024 12:29 PM EDT): Continue to follow-up with neurology Assessment & Plan (09/07/2023 1:25 PM EDT): F/u with neurology Assessment & Plan (03/25/2023 11:23 AM EST): I will refer him back to neurology Opioid dependence 03/03/2022 Assessment & Plan (07/07/2024 12:29 PM EDT): Patient reports he is now on methadone 30 mg daily I will order blood work patient will be contacted with results Assessment & Plan (03/25/2023 11:18 AM EST): Patient currently on methadone on 100mg daily Chronic hepatitis C 03/11/2017 Cocaine dependence in remission 03/11/2017 Glaucoma 03/11/2017 Heroin dependence 03/11/2017 Mild intermittent asthma 03/11/2017 Assessment & Plan (07/07/2024 12:29 PM EDT): Stable continue with same interventions Assessment & Plan (03/25/2023 11:23 AM EST): Controlled c/w current interventions Mood disorder 03/11/2017 Positive PPD 03/11/2017 Wears partial dentures 03/11/2017 Encounters Date Type Department Care Team Description 07/07/2024 10:15 AM EDT Office Visit [address] [address] Breanna Cavanaugh MD Multiple sclerosis (CMS/HCC) (Primary Dx); Mild intermittent asthma without complication; Uncomplicated opioid dependence (CMS/HCC); 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; Other stimulant abuse, in remission (CMS/HCC); Encounter for immunization; Colon cancer screening declined 07/07/[address] [address] Breanna Cavanaugh MD insurance 07/07/2024 Travel 06/22/[address] [address] Breanna Cavanaugh MD 06/22/2024 Patient Outreach [address] [address] Breanna Cavanaugh MD Care Coordination (CHW outreach for SDOH [id number] completed /) 06/22/2024 Patient Outreach [facility] [address] [place] [address] Breanna Cavanaugh MD 06/22/[address] [address] Breanna Cavanaugh MD Call Back Request 06/21/2024 Patient Outreach [address] [address] Breanna Cavanaugh MD Care Coordination (CHW outreach for SDOH PT-1 - LVM ) 06/21/[address] [address] Breanna Cavanaugh MD PT-1 06/20/2024 Patient Outreach [address] [address] Breanna Cavanaugh MD Care Coordination (CHW outreach for SDOH PT-1 and food needs-referral completed /) 06/20/2024 Patient Outreach [address] [address] Breanna Cavanaugh MD 06/20/[address] [address] Breanna Cavanaugh MD PT-1 04/21/2024 Refill [facility] [address] [place], [place] [phone] Breanna Cavanaugh MD Mild intermittent asthma without complication 04/12/2024 Refill [facility] [address] [place], [place] [phone] Breanna Cavanaugh MD Chronic pain of both [...] tox oid, preservative free, adsorbed 10/06/2012 Tdap 07/07/2024, 3,05/26/2007,06/04 Zoster, Recombinant 11/28/2021,09/13/2021 Social History Tobacco Use Types Packs/Day Years Used Date Smoking Tobacco: Every Day Cigarettes Passive Smoke Exposure: Current Smokeless Tobacco: Never Tobacco Cessation:Ready to Q uit: Not Asked; Counseling Given: Not Answered Alcohol Use Standard Drinks/Week Comments Never 0 (1 standard drink = 0.6 oz pur e alcohol) Depression Answer Date Recorded Patient Health Questionnaire-9 [...] Sign Reading Time Taken Comments Blood Pressure 139/80 07/07/2024 10:18 AM EDT Pulse 92 07/07/2024 10:18 AM EDT Temperature 36.7 ??C (98 ??F) 07/07/2024 10:18 AM EDT Respiratory Rate 12 07/07/2024 10:18 AM EDT Oxygen Saturation 94% 09/07/2023 11:37 AM EDT Inhaled Oxygen Concentration - - Weight 96.6 kg (213 lb) 07/07/2024 10:18 AM EDT Height 180.3 cm (5' 11 ) 07/07/2024 10:18 AM EDT Body Mass Index 29.71 07/07/2024 10:18 AM EDT Plan of Treatment Health Maintenance Due Date Last Done Comments CT Colonography 1962 Colonoscopy 1962 Colorectal Cancer Screening 1962 FIT DNA/Cologuard 1962 FIT 1962 FOBT 1962 Sigmoidoscopy 1962 Alcohol/Substance Use Screening 1974 RSV Patients and Patients Aged 60 years or older (1 - Risk 60-74 years 1-dose series) 2022 COVID-19 Vaccine ( season) 2023 04/17/2023, 02/07/2022, 03/07/2021, Additional history exists Influenza Vaccine (#1) 2023 , 02/04/2022, 01/14/2018, Additional history exists Depression Screening 09/06/2024 09/07/2023, 09/07/19 24 SDOH Screening 03/17/2025 03/17/2024 Tobacco Screening 07/07/2025 07/07/2024 Lipid Panel 03/26/2028 03/26/2023, 110 05/2021, 09/26/2020 DTaP/Tdap/Td Vaccines (6 - Td or Tdap) 07/07/2034 07/07/2024, 10/06/2012, 10/06/2012, Additional history exists Hepatitis A Vaccines Discontinued 01/07/2007, 01/01/20 00 Hepatitis B Vaccines Discontinued 01/07/2007 Zoster Vaccines Completed 11/28/2021, 09/13/2021 HIV Screening Completed 03/26/2023, 05/2021, 09/26/2020, Additional history exists Pneumococcal Vaccine: 50+ Years Completed 09/07/2023, 11/07/2005 HIB Vaccines Aged Out [...] 8:03 AM EST) HIV AB/AG Nonreactive Nonreactive [facility] Comment:HIV-1 p24 Ag and/or HIV-1/HIV-2 Ab not detected.A test result that is nonreactive does not exclude thepossibility of exposure to or infection with HIV-1 and/orHIV-2. Nonreactive results in this assay for individualswith prior exposure to HIV-1 and/or HIV-2 may be due toantigen and antibody levels that are below the limit ofdetection of this assay.The [employer] HIV Ag/Ab Combo assay result andsupplemental assay results should be interpreted inconjunction with the patient's clinical presentation,history and other laboratory results. If the results areinconsistent with clinical evidence, additional testing issuggested to confirm the result. Blood Venous blood specimen / Unknown 03/26/2023 8:03 AM EST 03/26/2023 11:17 AM EST us Breanna Vance MD LAB BLOOD ORDERABLES Final Result [facility] [address] [place] [phone] * Lipid Panel, Standard (03/26/2023 8:03 AM EST) Triglycerides 129 <150 mg/dL [facility] Comment:Desirable Triglyceri de: less than 150 mg/dLBorderline High Triglyceride 150-199 mg/dLHigh Triglyceride: 200-499 mg/dLVery High Triglyceride: greater than or equal to 5OO mg/dL Cholesterol 165 <200 mg/dL [facility] Comment:Desirable Cholestero l: less than 200 mg/dLBorderline High Cholesterol: 200-239 mg/dLHigh Cholesterol: greater than 239 mg/dL LDL Cholesterol Calculated 99 <100 mg/dL [facility] Comment:Desirable LDL: less than 100 mg/dLNear Optimal/Above Optimal LDL: 110- 129 mg/dLBorderline High LDL: 130-159 mg/dLHigh LDL: 160-189 mg/dLVery High LDL: greater than or equal to 190 mg/dL HDL Cholesterol 41 >40 mg/dL [facility] Comment:Desirable HDL: great er than 40 mg/dL Note: This HDL assay may give artificially low results in patients with liver disease. Blood Venous blood specimen / Unknown 03/26/2023 8:03 AM EST 03/26/2023 11:17 AM EST Breanna Vance MD LAB BLOOD ORDERABLES Final Result [facility] [address] [place] [address] [phone] from Last 3 Months or Most Recently Relevant to Health Maintenance Insurance MEDICARE Member Subscriber Plan / Payer (Ef fective 2023-Present) Name:Mango Abernathy Member ID:[id number] Relation to Subscriber:Self Name:Mango Abernathy Subscriber ID:[id number] Payer ID:STATE Group ID:Not on file Type:Medicare Address: [facility] [address] [address] [facility] Care Teams Web Publisher Relationship Specialty Start Date End Date Breanna Cavanaugh MD [address] [place] [address] PCP - General Family Medicine 12/16/17
--- OUTSIDE RECORDS SUMMARY | 2024-07-11 09:00 | XMS_ITS | Encounter Summary ---
Author Organization [employer] Address [address] [facility] [address] 7t [place] [address] Care Team Providers Care Skid Adzer Name Role Phone Breanna Cavanaugh MD Primary Care Provide r Reason for Visit * Reason Comments Med Refill Encounter Details Date Type Department Care Team ([facility] st Contact Info) Description 05/25/2023 Refill [facility] [address] [place], [place] [phone] Amina Richmond MD [address] [place], [place] [phone] Social History Tobacco Use Types Packs/Day Years [...] on filedocumented in this encounter Care Teams Skid Adzer Relationship Specialty Start Date End Date Breanna Cavanaugh MD [address] [place] [phone] PCP - General Family Medicine 12/16/17 documented as of this encounter
--- OUTSIDE RECORDS SUMMARY | 2024-07-11 09:00 | XMS_ITS | Encounter Summary ---
Author Organization [employer] Address [address] [facility] [address] 7[address] [place] [address] Care Team Providers Care Chief Controller Tower Name Role Phone Breanna Cavanaugh MD Primary Care Provide r Encounter Details Date Type Department Care Team ([facility] st Contact Info) Description 06/22/2024 Telephone [facility] [address] [place], [place] [phone] Breanna Cavanaugh MD [address] [place], [place] [phone] Social History Tobacco Use Types Packs/Day Years [...] encounter Miscellaneous Notes * Telephone Encounter - Nela Clark - 06/22/2024 9:18 AM EDT Tc from Jessica from [facility] requesting to speak with you . Caller is requesting PT 1 request #. Please call to clarify [phone]. documented in this encounter Plan of Treatment Not on file documented as of this encounter Visit Diagnoses Not on filedocumented in this encounter Additional Health Concerns Assessment Noted Time PHQ-9 Depression Total Score: 0 09/07/19 24 11:39 AM EDT documented as of this encounter Care Teams Chief Controller Tower Relationship Specialty Start Date End Date Breanna Cavanaugh MD [address] [place] [address] PCP - General Family Medicine 12/16/17 documented as of this encounter
--- OUTSIDE RECORDS SUMMARY | 2024-07-11 09:00 | XMS_ITS | Encounter Summary ---
Author Organization [employer] Address [address] [facility] [address] 7t [place] [address] Care Team Providers Care Lumber Handler Name Role Phone Breanna Cavanaugh MD Primary Care Provide r Reason for Visit * Reason Onset Date Comments PT-1 06/21/2024 Encounter Details Date Type Department Care Team ([facility] st Contact Info) Description 06/21/2024 Telephone [facility] [address] [place], [place] [phone] Breanna Cavanaugh MD [address] [place], [place] [phone] PT-1 Social History Tobacco Use Types Packs/Day Years [...] encounter Miscellaneous Notes * Telephone Encounter - Dwight Mioxn - 06/21/2024 11:47 AM EDT Patient calling requesting PT1 Home Address verified: Y/N: Yes Provider name or facility name: [facility] [address] [place] [address] [address], [place] [address] Escort needed: Y/N: Yes Do you have a wheelchair: Y/N: No If yes- Manual or electric: Visits: (3 x Monthly) Contact Paty at [phone] documented in this encounter Plan of Treatment Not on file documented as of this encounter Visit Diagnoses Not on filedocumented in this encounter Additional Health Concerns Assessment Noted Time PHQ-9 Depression Total Score: 0 09/07/19 24 11:39 AM EDT documented as of this encounter Care Teams Lumber Handler Relationship Specialty Start Date End Date Breanna Cavanaugh MD [address] [place] [phone] PCP - General Family Medicine 12/16/17 documented as of this encounter
--- OUTSIDE RECORDS SUMMARY | 2024-07-11 09:00 | XMS_ITS | Encounter Summary ---
Author Organization [employer] Address [address] [facility] [address] 7[address] [place] [address] Care Team Providers Care Music Therapist [employer] Name Role Phone Breanna Cavanaugh MD Primary Care Provide r Reason for Visit * Reason Onset Date Comments PT-1 06/20/2024 Encounter Details Date Type Department Care Team ([facility] st Contact Info) Description 06/20/2024 Telephone [facility] [address] [place], [place] [phone] Breanna Cavanaugh MD [address] [place], [place] [phone] PT-1 Social History Tobacco Use Types Packs/Day [...] encounter Miscellaneous Notes * Telephone Encounter - Clair Matute - 06/21/2024 3:09 PM EDT Tc from Jessica Paul stating pt has an appt on 06/23 at 10:30am. * Telephone Encounter - Chelsi Leyva - 06/20/2024 9:34 AM EDT Patient calling requesting PT1 Home Address verified: Y/N: Yes Provider name or facility name: [address] [place] [address] Dr Gabriella [place] [address] [facility] Escort needed: Y/N: No Do you have a wheelchair: Y/N: No CANE Visits: (2x every 6 months ) documented in this encounter Plan of Treatment Not on file documented as of this encounter Visit Diagnoses Not on filedocumented in this encounter Additional Health Concerns Assessment Noted Time PHQ-9 Depression Total Score: 0 09/07/19 24 11:39 AM EDT documented as of this encounter Care Teams Music Therapist [employer] Relationship Specialty Start Date End Date Breanna Cavanaugh MD [address] [place] [phone] PCP - General Family Medicine 12/16/17 documented as of this encounter
--- OUTSIDE RECORDS SUMMARY | 2024-07-11 09:00 | XMS_ITS | Encounter Summary ---
Author Organization [employer] Address [address] [facility] 7t [place] [address] Care Team Providers Care Freelance Court Reporter Name Role Phone Breanna Cavanaugh MD Primary Care Provide r Reason for Visit * Reason Onset Date Comments insurance 07/07/2024 Encounter Details Date Type Department Care Team ([facility] st Contact Info) Description 07/07/2024 Telephone [facility] [address] [place], [place] [phone] Breanna Cavanaugh MD [address] [place], [place] [phone] insurance Social History Tobacco Use Types Packs/Day Years Used Date Smoking Tobacco: Every Day Cigarettes Passive Smoke Exposure: Current Smokeless Tobacco: Never Alcohol Use Standard Drinks/Week Comments Never 0 [...] encounter Miscellaneous Notes * Telephone Encounter - Sweta Izquierdo - 07/07/2024 11:03 AM EDT Called pt no answer lvm informing them they have a appt on 07/08/24 but there insurance is coming back inactive , if they would like to come to insurance enrollment to the second or third floor to seeif they can help them , if they have any questions they can give us a call back. documented in this encounter Plan of Treatment Not on file documented as of this encounter Visit Diagnoses Not on filedocumented in this encounter Additional Health Concerns Assessment Noted Time PHQ-9 Depression Total Score: 0 09/07/19 24 11:39 AM EDT documented as of this encounter Care Teams Freelance Court Reporter Relationship Specialty Start Date End Date Breanna Cavanaugh MD [address] [place] [phone] PCP - General Family Medicine 12/16/17 documented as of this encounter
--- OUTSIDE RECORDS SUMMARY | 2024-07-11 09:00 | XMS_ITS | Encounter Summary ---
Author Organization [employer] Address [address] [facility] [address] 7[address] [place] [address] Care Team Providers Care Roll Cutter Name Role Phone Breanna Cavanaugh MD Primary Care Provide r Encounter Details Date Type Department Care Team ([facility] st Contact Info) Description 07/07/2024 10:15 AM EDT Office Visit [facility] [address] [place], [place] [phone] Breanna Cavanaugh MD [address] [place], [place] [phone] Multiple sclerosis (CMS/HCC) (Primary Dx); Mild intermittent asthma without complication; Uncomplicated opioid dependence (CMS/HCC); Other care home (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; Other stimulant abuse, in remission (CMS/HCC); Encounter for immunization; Colon cancer screening declined Social History Tobacco Use Types Packs/Day Years [...] AM EDT documented as of this encounter Last Filed Vital Signs Vital Sign Reading Time Taken Comments Blood Pressure 139/80 07/07/2024 10:18 AM EDT Pulse 92 07/07/2024 10:18 AM EDT Temperature 36.7 ??C (98 ??F) 07/07/2024 10:18 AM EDT Respiratory Rate 12 07/07/2024 10:18 AM EDT Oxygen Saturation - - Inhaled Oxygen Concentration - - Weight 96.6 kg (213 lb) 07/07/2024 10:18 AM EDT Height 180.3 cm (5' 11 ) 07/07/2024 10:18 AM EDT Body Mass Index 29.71 07/07/2024 10:18 AM EDT documented in this encounter Progress Notes * Breanna Vance MD - 07/07/2024 10:15 AM EDT SUBJECTIVE: Mango Abernathy is a 63 y.o. year old male who presents for chronic conditions Acute Concerns: None Social History Social History Narrative Not on file Patient Active Problem List Diagnosis Chronic hepatitis C (CMS/HCC) Cocaine dependence in remission (CMS/HCC) Glaucoma Heroin dependence (CMS/HCC) Mild intermittent asthma Depressive disorder Mood disorder ([facility]/HCC) Multiple sclerosis ([facility]) Positive PPD Opioid dependence ([facility]) Wears partial dentures Elevated blood pressure reading Encounter for preventive health examination Onychomycosis Chronic pain of both feet Atypical chest pain Colon cancer screening declined No family history on file. Review of Systems Constitutional: Negative. HENT: Negative. Respiratory: Negative. Cardiovascular: Negative. OBJECTIVE: Vitals: 07/07/24 1018 BP: 139/80 BP Location: Left arm Patient Position: Sitting BP Cuff Size: Large adult Pulse: 92 Resp: 12 Temp: 98 ??F (36.7 ??C) TempSrc: Oral Weight: 213 lb (96.6 kg) Height: 5' 11 (1.803 m) Physical Exam Constitutional: Appearance: Normal appearance. Cardiovascular: Rate and Rhythm: Normal rate and regular rhythm. Pulmonary: Effort: Pulmonary effort is normal. Abdominal: General: Abdomen is flat. Palpations: Abdomen is soft. Musculoskeletal: Right lower leg: No edema. Left lower leg: No edema. Neurological: Mental Status: He is alert. Follow Up: No follow-ups on file. Current Outpatient Medications on File Prior to Visit Medication Sig Dispense Refill albuterol (Ventolin HFA) 108 (90 Base) MCG/ACT inhaler INHALE 2 PUFFS BY MOUTH EVERY 4 TO 6 HOURS NEEDED 18 g 1 ibuprofen 800 MG tablet TAKE 1 TABLET BY MOUTH THREE TIMES DAILY 90 tablet 0 No current facility-administered medications on file prior to visit. Problem List Items Addressed This Visit Multiple sclerosis ([facility]) - Primary Continue to follow-up with neurology Mild intermittent asthma Stable continue with same interventions Opioid dependence ([facility]) Patient reports he is now on methadone 30 mg daily I will order blood work patient will be contacted with results Relevant Orders CBC auto differential Comprehensive Metabolic Panel Hemoglobin A1c HIV-1/2 Antigen and Antibodies, Fourth Generation, with Reflexes Hepatitis C Antibody with Reflex to HCV, RNA, Quantitative, Real-Time PCR Lipid Panel, Standard Colon cancer screening declined Other Visit Diagnoses 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 (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 Relevant Orders Hemoglobin A1c Lipid Panel, Standard Other stimulant abuse, in remission ([facility]) Relevant Orders HIV-1/2 Antigen and Antibodies, Fourth Generation, with Reflexes Encounter for immunization Relevant Orders TDAP VACCINE 7 yrs + (Completed) documented in this encounter Miscellaneous Notes * Assessment & Plan Note - Breanna Vance MD - 07/07/2024 12:29 PM EDT Associated Problem(s): Opioid dependence (CMS/HCC) Patient reports he is now on methadone 30 mg daily I will order blood work patient will be contacted with results * Assessment & Plan Note - Breanna Vance MD - 07/07/2024 12:29 PM EDT Associated Problem(s): Mild intermittent asthma Stable continue with same interventions * Assessment & Plan Note - Breanna Vance MD - 07/07/2024 12:29 PM EDT Associated Problem(s): Multiple sclerosis (CMS/HCC) Continue to follow-up with neurology documented in this encounter Plan of Treatment Scheduled Orders Name Type Priority Associated Diagnoses Orde r Schedule CBC auto differential Lab Routine Uncomplicated opioid dependence (CMS/HCC) Expected: 07/07/2024 (Approximate), Expires: 07/07/2025 Comprehensive Metabolic Panel Lab Routine Uncomplicated opioid dependence (CMS/HCC) Expected: 07/07/2024 (Approximate), Expires: 07/07/2025 Hemoglobin A1c Lab Routine Uncomplicated opioid dependence (CMS/HCC) Other care home (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 Expected: 07/07/2024 (Approximate), Expires: 07/07/2025 HIV-1/2 Antigen and Antibodies, Fourth Generation, with Reflexes Lab Routine Uncomplicated opioid dependence (CMS/HCC) Other stimulant abuse, in remission (CMS/HCC) Expected: 07/07/2024 (Approximate), Expires: 07/07/2025 Hepatitis C Antibody with Reflex to HCV, RNA, Quantitative, Real-Time PCR Lab Routine Uncomplicated opioid dependence (CMS/HCC) Expected: 07/07/2024, Expires: 07/07/2025 Lipid Panel, Standard Lab Routine Uncomplicated opioid dependence (CMS/HCC) Other care home (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 Expected: 07/07/2024 (Approximate), Expires: 07/07/2025 documented as of this encounter Visit Diagnoses Diagnosis Multiple sclerosis (CMS/HCC)- Primary Multiple sclerosis Mild intermittent asthma without complication Uncomplicated opioid dependence (CMS/HCC) 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
--- OUTSIDE RECORDS SUMMARY | 2024-07-11 09:00 | XMS_ITS | Encounter Summary ---
Author Organization [employer] Address [address] [address] [facility] [facility] [address] [place] [address] Care Team Providers Care Joinery Machinist Name Role Phone Breanna Cavanaugh MD Primary Care Provide r Encounter Details Date Type Department Care Team (Latest Contact Info) Description 07/07/2024 Travel Social History Tobacco Use Types Packs/Day Years [...] documented as of this encounter Care Teams Joinery Machinist Relationship Specialty Start Date End Date Breanna Cavanaugh MD [address] [place] [address] PCP - General Family Medicine 12/16/17 documented as of this encounter
--- OUTSIDE RECORDS SUMMARY | 2024-07-11 09:00 | XMS_ITS | Encounter Summary ---
Author Organization [employer] Address [address] [place] [address] Care Team Providers Care Hydrologic Engineer Name Role Phone Breanna Cavanaugh MD Primary Care Provide r Reason for Visit * Reason Onset Date Comments PT1 09/10/2023 Encounter Details Date Type Department Care Team ([facility] st Contact Info) Description 09/10/2023 Telephone [facility] [address] [place], [place] [phone] Breanna Cavanaugh MD [address] [place], [place] [phone] PT1 Social History Tobacco Use Types Packs/Day [...] Miscellaneous Notes * Telephone Encounter - Josephine Rivear - 09/10/2023 9:22 AM EDT Patient calling requesting PT1 Home Address verified: Y/N: Yes Provider name or facility name: [facility] Facility Address: [facility] [place] [address] Escort needed: Y/N: No Do you have [...] documented as of this encounter Care Teams Hydrologic Engineer Relationship Specialty Start Date End Date Breanna Cavanaugh MD [address] [place] [phone] PCP - General Family Medicine 12/16/17 documented as of this encounter
--- OUTSIDE RECORDS SUMMARY | 2024-07-11 09:00 | XMS_ITS | Encounter Summary ---
Author Organization [employer] Address [address] 7[address] [place] [address] Care Team Providers Care Network Security Architect Name Role Phone Breanna Cavanaugh MD Primary Care Provide r Reason for Visit * Reason Comments Med Refill Encounter Details Date Type Department Care Team ([facility] st Contact Info) Description 12/05/2023 Refill [facility] [address] [place], [place] [phone] Breanna Cavanaugh MD [address] [place], [place] [phone] Mild intermittent asthma without complication Social History [...] documented as of this encounter Care Teams Network Security Architect Relationship Specialty Start Date End Date Breanna Cavanaugh MD [address] [place] [phone] PCP - General Family Medicine 12/16/17 documented as of this encounter
--- OUTSIDE RECORDS SUMMARY | 2024-07-11 09:00 | XMS_ITS | Encounter Summary ---
Author Organization [employer] [facility] Address [address] [place] [address] Care Team Providers Care Professor Of Legal Studies Name Role Phone Breanna Cavanaugh MD Primary Care Provide r Reason for Visit * Reason Onset Date Comments Call Back Request 06/22/2024 Encounter Details Date Type Department Care Team ([facility] Contact Info) Description 06/22/2024 Telephone [facility] [address] [place], [place] [phone] Breanna Cavanaugh MD [address] [place], [place] [phone] Call Back Request Social History Tobacco Use Types Packs/Day Years [...] encounter Miscellaneous Notes * Telephone Encounter - Chelsi Leyva - 06/22/2024 8:47 AM EDT Tc from Jessica from [facility] requesting a callback in regards SDOH as pt demographics not confirmed. Please return call to Jessica [phone] documented in this encounter Plan of Treatment Not on file documented as of this encounter Visit Diagnoses Not on filedocumented in this encounter Additional Health Concerns Assessment Noted Time PHQ-9 Depression Total Score: 0 09/07/19 24 11:39 AM EDT documented as of this encounter Care Teams Professor Of Legal Studies Relationship Specialty Start Date End Date Breanna Cavanaugh MD [address] [place] [phone] PCP - General Family Medicine 12/16/17 documented as of this encounter
[2024-07-11 11:27] LABS: Basophils Absolute Auto 0.1 X10*3/uL (0.0-0.2); Basophils Percent Auto 1.4 % (0-2); Eosinophils Absolute Auto 0.1 X10*3/uL (0.0-0.4); Eosinophils Percent Auto 1.2 % (0-4); Hematocrit 40.4 % (42.0-52.0); Hemoglobin 14.2 g/dl (14.0-18.0); Imm Gran Abs Auto 0.02 X10*3/uL (0.00-0.03); Imm Gran Pct Auto 0.4 % (0.0-0.4); Lymphocytes Absolute Auto 1.1 X10*3/uL (1.2-4.9); Lymphocytes Percent Auto 22.4 % (20-40); MANUAL DIFF FLAG SCAN; Mean Corpuscular HGB Conc 35.1 g/dl (31.0-36.0); Mean Corpuscular Hemoglobin 30.8 pg (27.0-33.0); Mean Corpuscular Volume 87.6 fL (80.0-98.0); Monocytes Absolute Auto 0.7 X10*3/uL (0.1-1.2); Monocytes Percent Auto 13.3 % (2-11); Neutrophils Absolute Auto 3.1 x10*3/uL (2.0-8.3); Neutrophils Percent Auto 61.3 % (45-73); PLT CLUMP 1; Red Blood Count 4.61 X10*6/uL (4.60-5.80); Red Cell Distribution Width 12.5 % (11.0-16.0); SCAN SMEAR FLAG 1
[2024-07-11 11:35] LABS: Estimated Average Glucose 120 mg/dL; Hemoglobin A1C 150.3962 umol/L; Hemoglobin A1c % 5.8 % (<6.0); Total Hemoglobin (HGBA1C) 3777.0449 umol/L
[2024-07-11 11:48] LABS: SLIDE REVIEW VERIFIED
[2024-07-11 11:57] LABS: White Blood Count 5.1 X10*3/uL (4.8-10.8)
[2024-07-11 13:20] LABS: Alanine Aminotransferase 36 U/L (0-40); Albumin Level 4.3 g/dL (3.5-5.0); Alkaline Phosphatase 71 U/L (39-117); Anion Gap 12 (12-20); Aspartate Amino Transferase 30 U/L (5-37); Bilirubin Total 0.3 mg/dL (0.0-1.0); Blood Urea Nitrogen 11 mg/dL (9-16); Calcium 9.3 mg/dL (8.4-10.2); Carbon Dioxide 25 mmol/L (22-29); Chloride 107 mmol/L (96-108); Cholesterol 156 mg/dL (<200); Estimated Glomerular Filt Rate > 60; Glucose Random 110 mg/dL (60-115); HDL Cholesterol 32 mg/dL (>40); LDL Cholesterol Calculated 98 mg/dL (<100); Potassium 3.6 mmol/L (3.3-5.1); Sodium 140 mmol/L (135-145); Total Protein 7.4 g/dL (6.5-8.0); Triglycerides 131 mg/dL (<150)
[2024-07-12 04:57] LABS: HIV AB/AG Nonreactive (Nonreactive); HIV Num 1 0.06 S/CO (0.00-0.99); ~HepC Num1 17.06 S/CO (0.00-0.79); ~Hepatitis C Antibody Reactive (Nonreactive)
[2024-07-15 15:38] LABS: HCV Log PCR <1.18 NOT DETECTED Log IU/mL (NOT DETECTED); HepC Viral Load <15 NOT DETECTED IU/mL (NOT DETECTED)
== END 2024-07-11 08:28 | disposition home or self-care (01) ==
LOC: HO.HHCL 08:27
PROVIDERS: Visit Provider Internal Medicine
DX: F11.20 Opioid dependence, uncomplicated (principal); F15.11 Other stimulant abuse, in remission; Z79.899 Other long term (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
CPT/HCPCS: 36415; 80053; 80061; 83036; 85025; 86803; 87389; 87522

== ENCOUNTER 2024-11-04 08:49 | Outpatient (REF) | payer MEDICARE, MEDICAID, SELFPAY ==
--- OUTSIDE RECORDS SUMMARY | 2024-11-04 09:02 | XMS_ITS | Clinical Summary ---
Author Organization [employer] Address [address] [facility] 7t [place] [address] Care Team Providers Care Hospital Intern Name Role Phone Breanna Cavanaugh MD Primary Care Provide r Allergies No known active allergies Medications ibuprofen 800 MG tabletIndication s:Chronic pain of both feet TAKE 1 TABLET BY MOUTH THREE TIMES DAILY 90 tablet 5 Active Ventolin HFA 108 (90 Base) MCG/ACT inhalerIndicatio ns:Mild intermittent asthma without complication INHALE 2 PUFFS BY MOUTH EVERY 4 TO 6 HOURS NEEDED 18 g 1 5 Active Ocrelizumab (OCREVUS IV) Infuse 600 mg into a venous catheter. 4 Active Buprenorphine HCl-Naloxone HCl (Suboxone) 8-2 MG SL filmIndications: Uncomplicated opioid dependence (CMS/HCC) Place 2 Film under the tongue Once per day for 8 days. For pickup on 11/09/24. 16 Film 5 11/12/19 25 Active naloxone (Narcan) 4 mg/0.1 mL nasal sprayIndications :Uncomplicated opioid dependence (CMS/HCC) Administer 1 spray (4 mg) into affected nostril(s) if needed for opioid reversal. May repeat every 2-3 minutes if needed, alternating nostrils, until medical assistance becomes available. 2 each 5 11/04/19 26 Active Active Problems Problem Noted Date Diagnosed [...] Encounters Date Type Department Care Team Description 11/04/2024 Telephone [facility] [address] [place] [address] Lizette Long MA 11/03/2024 2:00 PM EDT Office Visit [address] [address] Katharina Singh MD Uncomplicated opioid dependence (CMS/HCC) (Primary Dx) 11/03/2024 1:00 PM EDT Office Visit [address] [address] Karla Stanley RN Uncomplicated opioid dependence (CMS/HCC) 11/03/2024 Travel 11/01/2024 Patient Outreach [address] [phone] Ricardo Jin Recovery Supports 10/20/2024 Patient Outreach [address] [address] Breanna Cavanaugh MD Care Coordination ([facility] outreach for SDOH PT-1 and food needs-referral completed /) 10/20/[address] [address] Breanna Cavanaugh MD pt1 10/10/2024 Patient Outreach [address] [address] Breanna Cavanaugh MD Care Coordination ([facility] outreach for SDOH PT-1 and food needs-referral completed /) 10/10/[address] [address] Breanna Cavanaugh MD pt1 08/18/2024 Refill [facility] [address] [place], [place] [phone] Breanna Cavanaugh MD Mild intermittent asthma without complication 08/11/2024 Refill [facility] [address] [place], [place] [phone] Breanna Cavanaugh MD Chronic pain of both feet from Last 3 Months Immunizations Immunization Administration Dates Next Due Hep A / [...] Date Recorded Patient Health Questionnaire-9 Score 0 11/03/2024 Patient Health Questionnaire-9 Score 0 11/03/2024 Last PHQ-9: Questionnaire Data Not on file 0 11/03/2024 Housing Stability Answer Date Recorded What is [...] Date Recorded Patient Health Questionnaire-2 Score 0 11/03/2024 Internet Access Answer Date Recorded Internet Access Q1 No 11/03/2024 Internet Access Q2 Not on file 11/03/2024 Sex and Gender Information Value Date Recorded Sex Assigned at Male 02/03/2022 10:16 AM EDT Legal Sex Male 10:16 AM EDT Gender Identity Male 02/03/2022 10:16 AM EDT Sexual Orientation Straight 02/03/2022 10 :16 AM EDT Last Filed Vital Signs Vital Sign Reading Time Taken Comments Blood Pressure 130/72 11/03/2024 1:02 PM EDT Pulse 72 11/03/2024 1:02 PM EDT Temperature 36.5 C (97.7 F) 11/03/2024 1:02 PM EDT Respiratory Rate 12 07/07/2024 10:18 AM EDT Oxygen Saturation 94% 09/07/2023 11:37 AM EDT Inhaled Oxygen Concentration - - Weight 96.6 kg (213 lb) 07/07/2024 10:18 AM EDT Height 180.3 cm (5' 11 ) 07/07/2024 10:18 AM EDT Body Mass Index 29.71 07/07/2024 10:18 AM EDT Plan of Treatment Upcoming Encounters Date Type Department Care Team (Late st Contact Info) Description 11/10/2024 1:00 PM EDT Office Visit [facility] [address] [place] [phone] Katharina Singh MD [address] [place] [phone] 11/17/2024 1:45 PM EDT Office Visit [facility] [address] [place] [phone] Katharina Singh MD [address] [place] [phone] 11/24/2024 2:15 PM EDT Clinical Support [facility] [address] [place] [phone] Dale Robison RN [address] [place] [address] 12/01/2024 10:30 AM EDT Clinical Support [address] [address] Dale Robison, RN [address] [place] [address] 12/14/2024 11:30 AM EDT Office Visit [address] [address] Breanna Cavanaugh MD [address] [place] [address] Health Maintenance Due Date Last Done Comments CT Colonography 1962 Colonoscopy 1962 Colorectal Cancer Screening 1962 FIT DNA/Cologuard 1962 FIT 1962 FOBT 1962 Sigmoidoscopy 1962 Disability Screening 1962 RSV Patients and Patients Aged 60 years or older (1 - Risk 60-74 years 1-dose series) 2022 COVID-19 Vaccine ( season) 2023 04/17/2023, 02/07/2022, 03/07/2021, Additional history exists Influenza Vaccine (#1) 2024 , 02/04/2022, 01/14/2018, Additional history exists Diabetes: Hemoglobin A1C 07/11/2025 025, 03/26/2023, 09/26/2020, Additional history exists Alcohol/Substance Use Screening 11/03/2025 11/03/2024 Depression Screening 11/03/2025 11/03/2024, 11/04/19 25 SDOH Screening 11/03/2025 11/03/2024 Tobacco Screening 11/03/2025 11/03/2024 Lipid Panel 07/11/2029 07/11/2024, 03/07, 02/05/2022, Additional history exists DTaP/Tdap/Td Vaccines (6 - Td or Tdap) 07/07/2034 07/07/2024, 10/06/2012, 10/06/2012, Additional history exists Hepatitis A Vaccines Discontinued 01/07/2007, 01/01/20 00 Hepatitis B Vaccines Discontinued 01/07/2007 Zoster Vaccines Completed 11/28/2021, 09/13/2021 Pneumococcal Vaccine: 50+ Years Completed 09/07/2023, 11/07/2005 HIV Screening Completed 07/11/2024, 03/07, 02/05/2022, Additional history exists HIB Vaccines Aged Out No longer eligi ble based on patient's age to complete this topic HPV Vaccines Aged Out No longer eligi ble based on patient's age to complete this topic IPV Vaccines Aged Out No longer eligi ble based on patient's age to complete this topic Meningococcal B Vaccine Aged Out No l onger eligible based on patient's age to complete [...] HIV 1/2 ANTIGEN/ANTIBODY, FOURTH GENERATION W/RFL Routine 07/11/2024 8:30 AM EDT Uncomplicated opioid dependence (CMS/HCC) Other stimulant abuse, in remission (CMS/[facility]) HEMOGLOBIN A1C Routine 07/11/2024 8:30 AM EDT Uncomplicated opioid dependence (CMS/HCC) 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 LIPID PANEL, STANDARD Routine 07/11/2024 8:30 AM EDT Uncomplicated opioid dependence (CMS/HCC) 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 Nonreactive results in this assay for individualswith prior exposure to HIV-1 and/or HIV-2 may be due toantigen and antibody levels that are below the limit ofdetection of this assay.The [employer] HIV Ag/Ab Combo assay result andsupplemental assay results should be interpreted inconjunction with the patient's clinical presentation,history and other laboratory results. If the results areinconsistent with clinical evidence, additional testing issuggested to confirm the result. Blood Venous blood specimen / Unknown 07/11/2024 8:30 AM EDT 07/11/2024 11:14 AM EDT us Breanna Vance MD LAB BLOOD ORDERABLES Final Result Performing Organization Address [facility] Co de Phone Number [facility] [address] [place] [phone] * Hemoglobin A1c (07/11/2024 8:30 AM EDT) Hemoglobin A1c 5.8 <6.0 % [facility] Comment:Hemoglobin A1C Refer ence Range Adults: 4.8 - 6.0 % Non diabetic: < 6.0 % Goal: < 7.0 %Additional Action Suggested: > 8.0 %Note: Hemoglobin A1c results are invalid for patients with abnormal amounts of HbF. Blood transfusions may impact the HbA1c concentration in the patient sample. Estimated Average Glucose 120 mg/dL [facility] Comment:eAG = Estimated ave rage glucose which is %A1C expressed asaverage glucose, using the formula of the [id number] Glucose study (ADAG), Diabetes Care, Vol.31,#8,2007 Blood Venous blood specimen / Unknown 07/11/2024 8:30 AM EDT 07/11/2024 11:14 AM EDT us Breanna Vance MD LAB BLOOD ORDERABLES Final Result Performing Organization Address [facility] Co de Phone Number [facility] [address] [place] [phone] * (ABNORMAL) Lipid Panel, Standard (07/11/2024 8:30 AM EDT) Triglycerides 131 <150 mg/dL [facility] Comment:Desirable Triglyceri de: less than 150 mg/dLBorderline High Triglyceride 150-199 mg/dLHigh Triglyceride: 200-499 mg/dLVery High Triglyceride: greater than or equal to 5OO mg/dL Cholesterol 156 <200 mg/dL [facility] Comment:Desirable Cholestero l: less than 200 mg/dLBorderline High Cholesterol: 200-239 mg/dLHigh Cholesterol: greater than 239 mg/dL LDL Cholesterol Calculated 98 <100 mg/dL [facility] Comment:Desirable LDL: less than 100 mg/dLNear Optimal/Above Optimal LDL: 110- 129 mg/dLBorderline High LDL: 130-159 mg/dLHigh LDL: 160-189 mg/dLVery High LDL: greater than or equal to 190 mg/dL HDL Cholesterol 32(L) >40 mg/dL [facility] Comment:Desirable HDL: great er than 40 mg/dL Note: This HDL assay may give artificially low results in patients with liver disease. Blood Venous blood specimen / Unknown 07/11/2024 8:30 AM EDT 07/11/2024 11:14 AM EDT us Breanna Vance MD LAB BLOOD ORDERABLES Final Result [facility] [address] [place] [phone] from Last 3 Months or Most Recently Relevant to Health Maintenance Insurance MEDICARE [facility] STANDARD Care Teams Hospital Intern Relationship Specialty Start Date End Date Breanna Cavanaugh MD [address] [place] [phone] PCP - General Family Medicine 12/16/17
[2024-11-04 13:44] LABS: HBS Num1 > 1000.00 mIU/mL (0-7.99); HBc Num1 7.59 S/CO (0.00-0.79); HBsAGNum1 0.49 S/CO (0.00-0.99); Hepatitis B Surface Antigen Negative (Negative); ~Hepatitis B Surface Antibody REACTIVE (Nonreactive)
[2024-11-04 13:58] LABS: ~Hepatitis A Antibody IgG 10.22 S/CO (0.00-0.99)
[2024-11-05 03:41] LABS: HBc Num2 7.24 S/CO; HBc Num3 7.26 S/CO
== END 2024-11-04 08:50 | disposition home or self-care (01) ==
LOC: HO.HHCL 08:49
PROVIDERS: Visit Provider Family Medicine
DX: Z11.59 Encounter for screening for other viral diseases (principal); F11.20 Opioid dependence, uncomplicated; Z72.89 Other problems related to lifestyle
CPT/HCPCS: 36415; 86704; 86706; 86708; 87340

== ENCOUNTER 2024-11-17 09:57 | Outpatient (AMB) | payer MEDICARE, MEDICAID, SELFPAY ==
--- NOTE | 2024-11-17 10:08 | MHC.OFFVIS ---
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 His MRI brain revealed signs of multiple sclerosis. He had first treatment of Ocrevus at [facility] in August 2022. The second treatment was done in May. He is presenting with medication-related issues at the infusion clinic. He recounts an experience where he went for his infusion, but the necessary medication was not available on the cart. This oversight caused delays and added stress, as he relies on others for transportation. He felt frustrated with the clinic?s lack of preparedness. There is evident disorientation around the timing of his past treatments as he doesn?t clearly remember recent appointments. He maintains good bladder control, and his sleep and mood are generally stable, except for occasional irritability. He explicitly denies using methadone and is concerned about the logistical challenges interfering with his routine. [facility] Medical History (Updated 11/17/24 @ 10:10 by Schuyler Saldana MD) Chronic progressive multiple sclerosis Multiple sclerosis exacerbation Ataxia Chronic pain of both feet Onychomycosis Opioid dependence Multiple sclerosis Depression Asthma Heroin dependence Glaucoma Cocaine dependence in remission Hepatitis C Family History Father No problems noted. Mother No problems noted. Social History Alcohol intake: former Patient Tobacco Use Status: Current everyday Tobacco user Review of Systems Const Details: - Genitourinary: Denies issues with bladder control. - Neurological: Reports adequate sleep and stable mood, though occasional irritability. - Substance Use: Denies current methadone use. Physical Exam Neuro Other: Mental Status: Alert and oriented to person, place, and time. Normal attention. Normal spontaneous speech, fluency, and comprehension. Cranial Nerves: CN II: Visual lennon full to confrontation, visual acuity intact. CN III, IV, : Pupils equal, round, reactive to light and accommodation. Extraocular movements are normal. CN V: Facial sensation is normal. CN VII: Facial movements symmetrical. CN VIII: Hearing intact to bedside conversation is normal. CN IX, X: Palate elevates symmetrically. CN XI: Shoulder shrug and head turn symmetrical. CN XII: Tongue midline without atrophy or fasciculations. Spastic gait with moderately severe unsteady gait with a cane Extrapyramidal: Full facial expressions and blinking. No rigidity. Movements are appropriate with no tremor or abnormality. Speech: Normal; no dysarthria or tremor. Assessment & Plan Assessment & Plan (1) Chronic progressive multiple sclerosis: Comment: MRI brain WO at [facility] in Nov 2020: moderate demyelinating disease MRI brain WO at [facility] In Nov 2021: seems the same WM disease compared to 2020, except that there is some atrophy. Code(s): G35 - Multiple sclerosis Category: Medical Plan Impression: Chronic progressive multiple sclerosis Rec: a: Ocrevus infusion every six months b: Liver enzyme test c: JCV titer Orders: Referrals Infusion Center Notification G35 - Multiple sclerosis Medications: New ocrelizumab (Ocrevus) 600 mg (20 mL) IV [id number] Coding Level of Care Code Est Pt Level 4 (33209) Diagnoses Chronic progressive multiple sclerosis G35
--- OUTSIDE RECORDS SUMMARY | 2024-11-17 10:36 | XMS_ITS | Clinical Summary ---
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 12/23/19 24 Active naloxone (Narcan) 4 mg/0.1 mL nasal sprayIndication s:Uncomplicated opioid dependence (CMS/HCC) Administer 1 spray (4 mg) into affected nostril(s) if needed for opioid reversal. May repeat every 2-3 minutes if needed, alternating nostrils, until medical assistance becomes available. 2 each 11/04/19 25 2025 Active Buprenorphine HCl-Naloxone HCl (Suboxone) 8-2 MG SL filmIndications :Uncomplicated opioid dependence (CMS/HCC) Place 2 Film under the tongue Once per day for 7 days. For pickup on 11/17/24 14 Film 11/18/19 25 2024 Active buprenorphine-n aloxone (Suboxone) 4-1 MG per sublingual filmIndications :Uncomplicated opioid dependence (CMS/HCC) Place 1 Film under the tongue Once per day for 7 days. 7 Film 11/18/19 25 2024 Active Buprenorphine HCl-Naloxone HCl (Suboxone) 8-2 MG SL filmIndications :Uncomplicated opioid dependence (CMS/HCC) Place 2 Film under the tongue Once per day for 8 days. For pickup on 11/09/24. 16 Film 11/04/19 25 2024 Discontinued(R eorder (will not trigger notification to Pharmacy)) Buprenorphine HCl-Naloxone HCl (Suboxone) 8-2 MG SL filmIndications :Uncomplicated opioid dependence (CMS/HCC) Place 2 Film under the tongue Once per day for 7 days. For pickup on 11/17/24 14 Film 11/15/19 25 2024 Discontinued(R eorder (will not trigger notification to Pharmacy)) Active Problems Problem Noted Date Diagnosed Date [...] Encounters Date Type Department Care Team Description 11/17/2024 9:00 AM EDT Clinical Support [facility] [address] [place] [phone] Karla Stanley RN Uncomplicated opioid dependence ([facility]/HCC) (Primary Dx) 11/17/2024 Refill [facility] [address] [place] [phone] Karla Stanley RN Uncomplicated opioid dependence (CMS/HCC) 11/17/2024 Travel 11/14/2024 Refill [facility] [address] [place] [phone] Karla Stanley RN Uncomplicated opioid dependence (CMS/HCC) 11/11/2024 Refill [facility] [address] [place] [phone] Karla Stanley RN Uncomplicated opioid dependence (CMS/HCC) 11/10/2024 10:30 AM EDT Clinical Support [facility] [address] [place] [phone] Karla Stanley RN Uncomplicated opioid dependence (CMS/HCC) 11/10/2024 Refill [facility] [address] [place] [id number] Karla Stanley RN Uncomplicated opioid dependence (CMS/HCC) 11/10/2024 Travel 11/04/2024 Telephone [facility] [address] [place] [phone] Lizette Long MA 11/03/2024 2:00 PM EDT Office Visit [address] [phone] Katharina Singh MD Uncomplicated opioid dependence ([facility]/HCC) (Primary Dx) 11/03/2024 1:00 PM EDT Office Visit [address] [phone] Karla Stanley RN Uncomplicated opioid dependence (CMS/HCC) 11/03/2024 Travel 11/01/2024 Patient Outreach [address] [phone] Ricardo Jin Recovery Supports 10/20/2024 Patient Outreach [address] [phone] Breanna Cavanaugh MD Care Coordination ([facility] outreach for SDOH PT-1 and food needs-referral completed /) 10/20/[address] [phone] Breanna Cavanaugh MD pt1 10/10/2024 Patient Outreach [address] [phone] Breanna Cavanaugh MD Care Coordination ([facility] outreach for SDOH PT-1 and food needs-referral completed /) 10/10/[address] [address] Breanna Cavanaugh MD pt1 08/18/2024 Refill [facility] [address] [place], [place] [phone] Breanna Cavanaugh MD Mild intermittent asthma without complication from Last 3 Months Immunizations Immunization Administration [...] Care Team (Late st Contact Info) Description 11/24/2024 2:15 PM EDT Clinical Support [address] [address] Dale Robison RN [address] [place] [phone] 12/01/2024 10:30 AM EDT Clinical Support [address] [phone] Dale Robison RN [address] [place] [phone] 12/14/2024 11:30 AM EDT Office Visit [address] [phone] Breanna Cavanaugh MD [address] [place] [phone] Health Maintenance Due Date Last Done Comments CT Colonography 1962 Colonoscopy 1962 Colorectal Cancer Screening 1962 FIT DNA/Cologuard 1962 FIT 1962 FOBT 1962 Sigmoidoscopy 1962 Disability Screening 1962 RSV Patients and Patients Aged 60 years or older (1 - Risk 60-74 years 1-dose series) 2022 COVID-19 Vaccine ( - season) 2023 04/17/2023, 02/07/2022, 03/07/2021, Additional history [...] exists Hepatitis A Vaccines Discontinued 01/07/2007, 01/01/20 Hepatitis B Vaccines Discontinued 01/07/2007 Zoster Vaccines [...] Procedure Name Priority Date/Time Associated Diagnosis Comments POCT ARIA-14 URINE DRUG SCREEN Routine 11/17/2024 8:59 AM EDT Uncomplicated opioid dependence (CMS/HCC) HEPATITIS B SURFACE ANTIGEN, EIA Routine 11/04/2024 8:58 AM EDT Uncomplicated opioid dependence (CMS/HCC) HEPATITIS B SURFACE ANTIBODY, QUALITATIVE Routine 11/04/2024 8:58 AM EDT Uncomplicated opioid dependence (CMS/HCC) HEPATITIS B CORE AB TOTAL Routine 11/04/2024 8:58 AM EDT Uncomplicated opioid dependence (CMS/HCC) HEPATITIS A ANTIBODY, TOTAL Routine 11/04/2024 8:58 AM EDT Uncomplicated opioid dependence (CMS/HCC) HIV 1/2 ANTIGEN/ANTIBODY, FOURTH GENERATION W/RFL Routine 07/11/2024 8:30 AM EDT Uncomplicated opioid dependence (CMS/HCC) Other stimulant abuse, in remission (CMS/HCC) HEMOGLOBIN A1C Routine 07/11/2024 8:30 AM EDT Uncomplicated opioid dependence (CMS/HCC) Other mcc (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 LIPID PANEL, STANDARD Routine 07/11/2024 8:30 AM EDT Uncomplicated opioid dependence (CMS/HCC) 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 from Last 3 Months or Most Recently Relevant to Health Maintenance Results * (ABNORMAL) POCT ARIA-14 Urine Drug Screen (11/17/2024 8:59 AM EDT) THC Negative Negative Cocaine Screen, Urine Negative Negative Opiate Screen, Urine Negative Negative Methamphetamine Screen Urine Negative Negative Amphetamine Screen, Urine Negative Negative Benzodiazepines Screen, Urine Negative Negative Barbiturate Screen, Urine Negative Negative Methadone Screen, Urine Negative Negative Buprenophine Screen, Urine Positive(A) Negative TCA, Urine Negative Negative MDMA Urine Negative Negative ng/mL Oxycodone Screen, Urine Negative Negative Phencyclidine (PCP), Urine Negative Negative Fentanyl, Urine Negative Negative Urine Urine specimen obtained by clean catch procedure / Unknown 11/17/2024 8:59 AM EDT us Katharina Singh MD POINT OF CARE TEST ENTER/MARIA E T ORDERABLES Final Result * Hepatitis A Antibody, Total (11/04/2024 8:58 AM EDT) Hepatitis A Antibody IgG REACTIVE Nonreactive [facility] Comment:The presence of IgG anti-HAV implies past HAV infection(recent or distant) or vaccination against HAV. Blood Venous blood specimen / Unknown 11/04/2024 8:58 AM EDT 11/04/2024 12:03 PM EDT us Katharina Singh MD LAB BLOOD ORDERABLES Final R esult Performing Organization Address City/[facility]/ZIP Co de Phone Number [facility] [address] [place] [phone] * Hepatitis B surface antigen, EIA (11/04/2024 8:58 AM EDT) Hepatitis B Surface Ag Negative Negative [facility] Blood Venous blood specimen / Unknown 11/04/2024 8:58 AM EDT 11/04/2024 12:03 PM EDT us Katharina Singh MD LAB BLOOD ORDERABLES Final R esult Performing Organization Address City/[facility]/ZIP Co de Phone Number [facility] [address] [place] [phone] * Hepatitis B Core Antibody, Total (11/04/2024 8:58 AM EDT) Hepatitis B Core Antibody Reactive Nonreactive [facility] Comment:Presumptive evidence of anti-HBc. Blood Venous blood specimen / Unknown 11/04/2024 8:58 AM EDT 11/04/2024 12:03 PM EDT us Katharina Singh MD LAB BLOOD ORDERABLES Final R esult Performing Organization Address [facility]/ZIP Co de Phone Number [facility] [address] [place] [phone] * Hepatitis B Surface Antibody, Qualitative (11/04/2024 8:58 AM EDT) ~Hepatitis B Surface Antibody REACTIVE Nonreactive [facility] Comment:REACTIVE: > 11.99 mI U/mL Blood Venous blood specimen / Unknown 11/04/2024 8:58 AM EDT 11/04/2024 12:03 PM EDT us Katharina Singh MD LAB BLOOD ORDERABLES Final R esult Performing Organization Address [facility] Co de Phone Number [facility] [address] [place] [phone] * HIV-1/2 Antigen and Antibodies, Fourth Generation, with Reflexes (07/11/2024 8:30 AM EDT) Pathologist [facility] HIV AB/AG Nonreactive Nonreactive [facility] Comment:HIV-1 p24 Ag and/or HIV-1/HIV-2 Ab not detected.A test result that is nonreactive does not exclude thepossibility of exposure to or infection with HIV-1 and/orHIV-2. Nonreactive results in this assay for individualswith prior exposure to HIV-1 and/or HIV-2 may be due toantigen and antibody levels that are below the limit ofdetection of this assay.The [employer] HIV Ag/Ab Combo assay result andsupplemental assay results should be interpreted inconjunction with the patient's clinical presentation,history and other laboratory results. If the results areinconsistent with clinical evidence, additional testing issuggested to confirm the result. Blood Venous blood specimen / Unknown 07/11/2024 8:30 AM EDT 07/11/2024 11:14 AM EDT us Breanna Vance MD LAB BLOOD ORDERABLES Final Result Performing Organization Address [facility] de Phone Number [facility] [address] [place] [phone] * Hemoglobin A1c (07/11/2024 8:30 AM EDT) Hemoglobin A1c 5.8 <6.0 % [facility] Comment:Hemoglobin A1C Refer ence Range Adults: 4.8 - 6.0 % Non diabetic: < 6.0 % Goal: < 7.0 %Additional Action Suggested: > 8.0 %Note: Hemoglobin A1c results are invalid for patients with abnormal amounts of HbF. Blood transfusions may impact the HbA1c concentration in the patient sample. Estimated Average Glucose 120 mg/dL [facility] Comment:eAG = Estimated ave rage glucose which is %A1C expressed asaverage glucose, using the formula of the R2G-DjvtjagKiraelt Glucose study (ADAG), Diabetes Care, Vol.31,#8,Nov. 2007 Blood Venous blood specimen / Unknown 07/11/2024 8:30 AM EDT 07/11/2024 11:14 AM EDT us Breanna Vance MD LAB BLOOD ORDERABLES Final Result Performing Organization Address [facility] Co de Phone Number [facility] [address] [place] [phone] * (ABNORMAL) Lipid Panel, Standard (07/11/2024 8:30 AM EDT) Triglycerides 131 <150 mg/dL [facility] Comment:Desirable Triglyceri de: less than 150 mg/dLBorderline High Triglyceride 150-199 mg/dLHigh Triglyceride: 200-499 mg/dLVery High Triglyceride: greater than or equal to 5OO mg/dL Cholesterol 156 <200 mg/dL [facility] Comment:Desirable Cholestero l: less than 200 mg/dLBorderline High Cholesterol: 200-239 mg/dLHigh Cholesterol: greater than 239 mg/dL LDL Cholesterol Calculated 98 <100 mg/dL [facility] Comment:Desirable LDL: less than 100 mg/dLNear Optimal/Above Optimal LDL: 110- 129 mg/dLBorderline High LDL: 130-159 mg/dLHigh LDL: 160-189 mg/dLVery High LDL: greater than or equal to 190 mg/dL HDL Cholesterol 32(L) >40 mg/dL [facility] Comment:Desirable HDL: great er than 40 mg/dL Note: This HDL assay may give artificially low results in patients with liver disease. 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
== END 2024-11-17 13:04 | disposition home or self-care (01) ==
LOC: HO.HSM 09:57
PROVIDERS: Visit Provider Psychiatry & Neurology Neurology
DX: G35 Multiple sclerosis (principal)
CPT/HCPCS: 99214

== ENCOUNTER → 2024-11-17 09:57 | Outpatient (BNVA) | payer MEDICARE, MEDICAID, SELFPAY | PROVIDERS: Visit Provider Psychiatry & Neurology Neurology | DX: G35 Multiple sclerosis (principal) | CPT/HCPCS: 99212 ==